=== PATIENT | male | born 1990 | race Hispanic/Latino ===

== ENCOUNTER 2020-04-20 05:26 | Inpatient (IN) | payer SELFPAY ==
[2020-04-20] VITALS (15 sets, daily range): BP systolic 120–149; BP diastolic 70–102; PULSE 102–154; RESP 14–30; TEMP 36.6–37.9; O2SAT 95–100; BMI 29.0
--- NOTE | 2020-04-20 05:59 | ED.ABDPAIN ---
HPI - Abdominal Pain <Jarred Wilson MD - Last Filed: 04/20/20 18:06> General Chief Complaint: Abdominal Pain Stated Complaint: abd/back pain, nausea Time Seen by Provider: 04/20/20 05:44 Source: patient Mode of arrival: Ambulatory Limitations: no limitations History of Present Illness HPI narrative: Patient brought here by friend. Complaints of upper mid back pain radiating to abdomen. Worsening this morning with pain. Has had nonbloody vomiting. Fevers as well. No cough cold congestion. No urinary complaints. No previous abdominal surgeries. Hurts with movement. Denies any medical problems. MD complaint: abdominal pain Related Data Home Medications Medication Instructions Recorded Confirmed No Known Home Medications 04/20/20 04/20/20 Allergies Allergy/AdvReac Type Severity Reaction Status Date / Time No Known Drug Allergies Allergy Verified 04/20/20 06:00 Review of Systems <Jarred Wilson MD - Last Filed: 04/20/20 18:06> Review of Systems Narrative: GENERAL: Complains of chills, denies fatigue, malaise, fever, sweats. HEENT: Denies sinus pain, ear pain, sore throat, difficulty swallowing RESPIRATORY: Denies dyspnea, cough CARDIOVASCULAR: Denies chest pain, palpitations, edema, GASTROINTESTINAL: Complains nausea, vomiting, abdominal pain, denies diarrhea, constipation, melena. : Denies dysuria, frequency, hematuria MUSCULOSKELETAL: denies muscle or bony pain SKIN: Denies rash, skin lesions NEUROLOGIC: Denies weakness, headache, numbness, change in speech, confusion PSYCHIATRIC: No SI or HI or hallucinations ROS Unobtainable: All systems reviewed & are unremarkable except as noted in HPI and below Patient History <Jarred Wilson MD - Last Filed: 04/20/20 18:06> Medical History Brain tumor, glioma (Acute) Social History household members: significant other Smoking Status: Never smoker Exam <Jarred Wilson MD - Last Filed: 04/20/20 18:06> Narrative Exam Narrative: GENERAL: patient appears stated age. Well-nourished, well-developed patient, in no distress, not toxic not dyspneic HEAD: Normocephalic. EYES: Pupils equal round and reactive. No scleral icterus. No injection no discharge ENT: Mucous membranes moist. No drooling no tongue elevation no trismus no malocclusion NECK: Trachea midline. Non tender CARDIOVASCULAR: Regular rate and rhythm without murmurs, gallops, or rubs. RESPIRATORY: Clear to auscultation. Breath sounds equal bilaterally. No wheezes, rales, or rhonchi. GASTROINTESTINAL: Abdomen soft, diffuse tenderness, no rebound tenderness. Bowel sounds present, no peritoneal signs. EXTREMITIES: No gross deformities. BACK: Mild diffuse mid upper back tenderness. NEURO: AOx4. SKIN: Warm and dry PSYCH: Not anxious, is cooperative Initial Vital Signs Initial Vital Signs: Vital Signs Pulse Rate 131 H 04/20/20 05:48 Respiratory Rate 30 H 04/20/20 05:48 Pulse Oximetry 100 04/20/20 05:48 <Alessandro No DO - Last Filed: 04/20/20 08:53> Initial Vital Signs Initial Vital Signs: Vital Signs Pulse Rate 131 H 04/20/20 05:48 Respiratory Rate 30 H 04/20/20 05:48 Pulse Oximetry 100 04/20/20 05:48 Course <Jarred Wilson MD - Last Filed: 04/20/20 18:06> Orders Ordered: Enoxaparin Sodium (Lovenox) 40 mg SUBCUT DAILY GERMAN Dextrose/Sodium Chloride (Dextrose 5%-0.45% Ns) 1,000 mls @ 200 mls/hr IV CONT GERMAN Last Infusion: 04/20/20 17:24 Dose: 200 mls/hr Documented by: Admin: 04/20/20 14:57 Dose: 100 mls/hr Documented by: MOE INSULIN DRIP PREMIX (Myxredlin Drip Premix) 100 unit in 100 mls @ 8.5 mls/hr IV CONT GERMAN; Protocol Last Admin: 04/20/20 14:54 Dose: 8.5 unit/hr, 8.5 mls/hr Documented by: MOE Cosigned by: GRACIE Morphine Sulfate (Morphine) 4 mg IV Q6HR PRN PRN Reason: Pain, Severe (7-10) Last Admin: 04/20/20 17:22 Dose: 4 mg Documented by: Admin: 04/20/20 11:10 Dose: 4 mg Documented by: GRACIE Naloxone HCl (Narcan) 0.2 mg IV Q2MIN PRN PRN Reason: Opiate Reversal Ondansetron HCl (Zofran) 4 mg IV Q8HR PRN PRN Reason: Nausea And Vomiting Discontinued Medications Dextrose (D50w) 25 gm IV NOW ONE Stop: 04/20/20 17:41 Last Admin: 04/20/20 17:47 Dose: Not Given Documented by: TAMERA Sodium Chloride (Normal Saline 0.9%) 1,000 mls @ 1,000 mls/hr IV BOLUS ONE Stop: 04/20/20 06:55 Last Infusion: 04/20/20 07:00 Dose: 0 mls/hr Documented by: Admin: 04/20/20 06:00 Dose: 1,000 mls/hr Documented by: BARBY Sodium Chloride (Normal Saline 0.9%) 1,000 mls @ 150 mls/hr IV CONT GERMAN Last Admin: 04/20/20 07:30 Dose: 150 mls/hr Documented by: JEREMIAH Piperacillin/Tazobactam/Dextrose (Zosyn) 3.375 gm in 50 mls @ 100 mls/hr IV NOW ONE Stop: 04/20/20 07:42 Last Infusion: 04/20/20 08:15 Dose: 0 mls/hr Documented by: Admin: 04/20/20 07:29 Dose: 100 mls/hr Documented by: JEREMIAH Sodium Chloride (Normal Saline 0.9%) 1,000 mls @ 1,000 mls/hr IV BOLUS ONE Stop: 04/20/20 13:26 Last Admin: 04/20/20 12:37 Dose: 1,000 mls/hr Documented by: GRACIE INSULIN DRIP PREMIX (Myxredlin Drip Premix) 100 unit in 100 mls @ 6 mls/hr IV TITRATE GERMAN; Protocol Last Admin: 04/20/20 14:58 Dose: Not Given Documented by: MOE Morphine Sulfate (Morphine) 4 mg IV NOW ONE Stop: 04/20/20 05:47 Last Admin: 04/20/20 06:01 Dose: 4 mg Documented by: BARBY Ondansetron HCl (Zofran) 4 mg IV NOW ONE Stop: 04/20/20 05:47 Last Admin: 04/20/20 06:00 Dose: 4 mg Documented by: BARBY Vital Signs Vital signs: Vital Signs - 8 hr 04/20/20 05:48 04/20/20 05:50 04/20/20 05:53 Temperature 99.9 F H Pulse Rate 131 H 132 H 154 H Respiratory Rate 30 H 28 H 23 Blood Pressure 136/92 H 136/99 H Pulse Oximetry 100 99 99 04/20/20 06:00 04/20/20 06:31 04/20/20 07:00 Temperature Pulse Rate 132 H 119 H 107 H Respiratory Rate 30 H 25 H Blood Pressure 135/91 H Pulse Oximetry 99 99 99 04/20/20 07:30 04/20/20 07:55 04/20/20 08:00 Temperature Pulse Rate 109 H 114 H 110 H Respiratory Rate 25 H 20 24 Blood Pressure 127/90 131/92 H Pulse Oximetry 100 98 98 <Alessandro No DO - Last Filed: 04/20/20 08:53> Orders Ordered: Enoxaparin Sodium (Lovenox) 40 mg SUBCUT DAILY GERMAN Dextrose/Sodium Chloride (Dextrose 5%-0.45% Ns) 1,000 mls @ 200 mls/hr IV CONT GERMAN Last Infusion: 04/20/20 17:24 Dose: 200 mls/hr Documented by: Admin: 04/20/20 14:57 Dose: 100 mls/hr Documented by: MOE INSULIN DRIP PREMIX (Myxredlin Drip Premix) 100 unit in 100 mls @ 8.5 mls/hr IV CONT GERMAN; Protocol Last Admin: 04/20/20 14:54 Dose: 8.5 unit/hr, 8.5 mls/hr Documented by: MOE Cosigned by: GRACIE Morphine Sulfate (Morphine) 4 mg IV Q6HR PRN PRN Reason: Pain, Severe (7-10) Last Admin: 04/20/20 17:22 Dose: 4 mg Documented by: Admin: 04/20/20 11:10 Dose: 4 mg Documented by: GRACIE Naloxone HCl (Narcan) 0.2 mg IV Q2MIN PRN PRN Reason: Opiate Reversal Ondansetron HCl (Zofran) 4 mg IV Q8HR PRN PRN Reason: Nausea And Vomiting Discontinued Medications Dextrose (D50w) 25 gm IV NOW ONE Stop: 04/20/20 17:41 Last Admin: 04/20/20 17:47 Dose: Not Given Documented by: TAMERA Sodium Chloride (Normal Saline 0.9%) 1,000 mls @ 1,000 mls/hr IV BOLUS ONE Stop: 04/20/20 06:55 Last Infusion: 04/20/20 07:00 Dose: 0 mls/hr Documented by: Admin: 04/20/20 06:00 Dose: 1,000 mls/hr Documented by: BARBY Sodium Chloride (Normal Saline 0.9%) 1,000 mls @ 150 mls/hr IV CONT GERMAN Last Admin: 04/20/20 07:30 Dose: 150 mls/hr Documented by: JEREMIAH Piperacillin/Tazobactam/Dextrose (Zosyn) 3.375 gm in 50 mls @ 100 mls/hr IV NOW ONE Stop: 04/20/20 07:42 Last Infusion: 04/20/20 08:15 Dose: 0 mls/hr Documented by: Admin: 04/20/20 07:29 Dose: 100 mls/hr Documented by: JEREMIAH Sodium Chloride (Normal Saline 0.9%) 1,000 mls @ 1,000 mls/hr IV BOLUS ONE Stop: 04/20/20 13:26 Last Admin: 04/20/20 12:37 Dose: 1,000 mls/hr Documented by: GRACIE INSULIN DRIP PREMIX (Myxredlin Drip Premix) 100 unit in 100 mls @ 6 mls/hr IV TITRATE GERMAN; Protocol Last Admin: 04/20/20 14:58 Dose: Not Given Documented by: MOE Morphine Sulfate (Morphine) 4 mg IV NOW ONE Stop: 04/20/20 05:47 Last Admin: 04/20/20 06:01 Dose: 4 mg Documented by: BARBY Ondansetron HCl (Zofran) 4 mg IV NOW ONE Stop: 04/20/20 05:47 Last Admin: 04/20/20 06:00 Dose: 4 mg Documented by: BARBY Vital Signs Vital signs: Vital Signs - 8 hr 04/20/20 05:48 04/20/20 05:50 04/20/20 05:53 Temperature 99.9 F H Pulse Rate 131 H 132 H 154 H Respiratory Rate 30 H 28 H 23 Blood Pressure 136/92 H 136/99 H Pulse Oximetry 100 99 99 04/20/20 06:00 04/20/20 06:31 04/20/20 07:00 Temperature Pulse Rate 132 H 119 H 107 H Respiratory Rate 30 H 25 H Blood Pressure 135/91 H Pulse Oximetry 99 99 99 04/20/20 07:30 04/20/20 07:55 04/20/20 08:00 Temperature Pulse Rate 109 H 114 H 110 H Respiratory Rate 25 H 20 24 Blood Pressure 127/90 131/92 H Pulse Oximetry 100 98 98 MDM - Abdominal Pain <Jarred Wilson MD - Last Filed: 04/20/20 18:06> Differential Diagnosis Differential diagnosis: Likely abdominal pain, acute appendicitis, calculus of kidney and pancreatitis Lab Data Result diagrams: 04/20/20 05:45 04/20/20 05:45 Labs: Lab Results 04/20/20 04/20/20 04/20/20 Range/Units 05:33 05:45 05:45 WBC 10.6 (4.5-11.0) X10^3/uL RBC 4.80 (4.5-5.9) X10^6/uL Hgb 14.5 (13.5-17.5) g/dL Hct 43.6 (41-53) % MCV 90.8 (80-100) fL MCH 30.2 (26-34) PG MCHC 33.3 (30-36) % RDW 14.4 (11.6-14.8) % Plt Count 197 (150-400) X10^3/uL Neut % (Auto) Not Reportable Lymph % (Auto) Not Reportable [place] % (Auto) Not Reportable Eos % (Auto) Not Reportable Baso % (Auto) Not Reportable Lymph # (Auto) Not Reportable [place] # (Auto) Not Reportable Baso # (Auto) Not Reportable Total Counted 100 Seg Neutrophils % 73.0 H (38-70) % Band Neutrophils % 5.0 (3-7) % Lymphocytes % (Manual) 15.0 L (25-45) % Atypical Lymphs % 3.0 H ( - 0) % Monocytes % (Manual) 4.0 (2-11) % Neutrophils # (Manual) 8268 H (3781-5957) /uL RBC Morphology Normal morphology Sodium 129 L (137-145) mmol/L Potassium 3.9 (3.4-5.1) mmol/L Chloride 92 L (98-107) mmol/L Carbon Dioxide 22 (22-32) mmol/L BUN 9 (9-20) mg/dL Creatinine 0.98 (0.66-1.25) mg/dL Estimated GFR > 60.0 (>60) mL/min BUN/Creatinine Ratio 9.2 (6-22) Glucose 180 H (70-100) mg/dL Calcium 7.6 L (8.4-10.2) mg/dL Total Bilirubin 3.5 H (0.2-1.3) mg/dL AST 224 H (17-59) IU/L ALT 135 H (<50) IU/L Alkaline Phosphatase 254 H (38-126) U/L Total Protein 8.9 H (6.3-8.2) g/dL Albumin 4.0 (3.5-5.0) g/dL Globulin 4.9 H (1.7-4.1) g/dL Albumin/Globulin Ratio 0.8 L (1.0-2.8) Triglycerides (35-150) mg/dL Cholesterol (140-199) mg/dL LDL Cholesterol, Calc HDL Cholesterol (40-60) mg/dL Lipase 3503 H (23-300) U/L Urine Color Dark yellow Urine Appearance Clear Urine pH 5.5 (4.5-8.0) Ur Specific [place] >=1.030 H (1.000-1.035) Urine Protein 2+ H (Negative) Urine Glucose (UA) Trace H (Negative) g/dL Urine Ketones Trace H (NEGATIVE) Urine Occult Blood Trace-lysed (Negative) Urine Nitrate Negative (Negative) Urine Bilirubin 2+ H (NEGATIVE) Ur Bilirubin Confirm Negative (Negative) Urine Urobilinogen 1.0 (0.2) E.U./dL Ur Leukocyte Esterase Negative (NEGATIVE) Urine RBC 0-1/hpf (0-5/HPF) Urine WBC 0-1/hpf (0-5/HPF) Urine Bacteria Few (2-10) H (None) Hyaline Casts 10-30/lpf (None) Granular Casts 1-5/lpf (None) Urine Mucus 2+ H (Negative) Ur Culture Indicated? Cult not indicated Ethyl Alcohol ( - 10) mg/dL COVID-19 PCR (Negative) 04/20/20 04/20/20 04/20/20 Range/Units 05:45 05:45 07:49 WBC (4.5-11.0) X10^3/uL RBC (4.5-5.9) X10^6/uL Hgb (13.5-17.5) g/dL Hct (41-53) % MCV (80-100) fL MCH (26-34) PG MCHC (30-36) % RDW (11.6-14.8) % Plt Count (150-400) X10^3/uL Neut % (Auto) Lymph % (Auto) [place] % (Auto) Eos % (Auto) Baso % (Auto) Lymph # (Auto) [place] # (Auto) Baso # (Auto) Total Counted Seg Neutrophils % (38-70) % Band Neutrophils % (3-7) % Lymphocytes % (Manual) (25-45) % Atypical Lymphs % ( - 0) % Monocytes % (Manual) (2-11) % Neutrophils # (Manual) (7227-1089) /uL RBC Morphology Sodium (137-145) mmol/L Potassium (3.4-5.1) mmol/L Chloride (98-107) mmol/L Carbon Dioxide (22-32) mmol/L BUN (9-20) mg/dL Creatinine (0.66-1.25) mg/dL Estimated GFR (>60) mL/min BUN/Creatinine Ratio (6-22) Glucose (70-100) mg/dL Calcium (8.4-10.2) mg/dL Total Bilirubin (0.2-1.3) mg/dL AST (17-59) IU/L ALT (<50) IU/L Alkaline Phosphatase (38-126) U/L Total Protein (6.3-8.2) g/dL Albumin (3.5-5.0) g/dL Globulin (1.7-4.1) g/dL Albumin/Globulin Ratio (1.0-2.8) Triglycerides 4598 H (35-150) mg/dL Cholesterol 599 H (140-199) mg/dL LDL Cholesterol, Calc TNP HDL Cholesterol 63 H (40-60) mg/dL Lipase (23-300) U/L Urine Color Urine Appearance Urine pH (4.5-8.0) Ur Specific [place] (1.000-1.035) Urine Protein (Negative) Urine Glucose (UA) (Negative) g/dL Urine Ketones (NEGATIVE) Urine Occult Blood (Negative) Urine Nitrate (Negative) Urine Bilirubin (NEGATIVE) Ur Bilirubin Confirm (Negative) Urine Urobilinogen (0.2) E.U./dL Ur Leukocyte Esterase (NEGATIVE) Urine RBC (0-5/HPF) Urine WBC (0-5/HPF) Urine Bacteria (None) Hyaline Casts (None) Granular Casts (None) Urine Mucus (Negative) Ur Culture Indicated? Ethyl Alcohol < 10 ( - 10) mg/dL COVID-19 PCR Negative (Negative) ECG Data Attestation: I personally reviewed and interpreted this ECG as follows: Interpretation: sinus tachycardia, no st elevation MDM Narrative Medical decision making narrative: appropriate for admit/pain control/abx/ivf <Alessandro No DO - Last Filed: 04/20/20 08:53> Lab Data Attestation: I reviewed the patient's lab results. Labs: Lab Results 04/20/20 04/20/20 04/20/20 Range/Units 05:33 05:45 05:45 WBC 10.6 (4.5-11.0) X10^3/uL RBC 4.80 (4.5-5.9) X10^6/uL Hgb 14.5 (13.5-17.5) g/dL Hct 43.6 (41-53) % MCV 90.8 (80-100) fL MCH 30.2 (26-34) PG MCHC 33.3 (30-36) % RDW 14.4 (11.6-14.8) % Plt Count 197 (150-400) X10^3/uL Neut % (Auto) Not Reportable Lymph % (Auto) Not Reportable [place] % (Auto) Not Reportable Eos % (Auto) Not Reportable Baso % (Auto) Not Reportable Lymph # (Auto) Not Reportable [place] # (Auto) Not Reportable Baso # (Auto) Not Reportable Total Counted 100 Seg Neutrophils % 73.0 H (38-70) % Band Neutrophils % 5.0 (3-7) % Lymphocytes % (Manual) 15.0 L (25-45) % Atypical Lymphs % 3.0 H ( - 0) % Monocytes % (Manual) 4.0 (2-11) % Neutrophils # (Manual) 8268 H (3745-8420) /uL RBC Morphology Normal morphology Sodium 129 L (137-145) mmol/L Potassium 3.9 (3.4-5.1) mmol/L Chloride 92 L (98-107) mmol/L Carbon Dioxide 22 (22-32) mmol/L BUN 9 (9-20) mg/dL Creatinine 0.98 (0.66-1.25) mg/dL Estimated GFR > 60.0 (>60) mL/min BUN/Creatinine Ratio 9.2 (6-22) Glucose 180 H (70-100) mg/dL Calcium 7.6 L (8.4-10.2) mg/dL Total Bilirubin 3.5 H (0.2-1.3) mg/dL AST 224 H (17-59) IU/L ALT 135 H (<50) IU/L Alkaline Phosphatase 254 H (38-126) U/L Total Protein 8.9 H (6.3-8.2) g/dL Albumin 4.0 (3.5-5.0) g/dL Globulin 4.9 H (1.7-4.1) g/dL Albumin/Globulin Ratio 0.8 L (1.0-2.8) Triglycerides (35-150) mg/dL Cholesterol (140-199) mg/dL LDL Cholesterol, Calc HDL Cholesterol (40-60) mg/dL Lipase 3503 H (23-300) U/L Urine Color Dark yellow Urine Appearance Clear Urine pH 5.5 (4.5-8.0) Ur Specific [place] >=1.030 H (1.000-1.035) Urine Protein 2+ H (Negative) Urine Glucose (UA) Trace H (Negative) g/dL Urine Ketones Trace H (NEGATIVE) Urine Occult Blood Trace-lysed (Negative) Urine Nitrate Negative (Negative) Urine Bilirubin 2+ H (NEGATIVE) Ur Bilirubin Confirm Negative (Negative) Urine Urobilinogen 1.0 (0.2) E.U./dL Ur Leukocyte Esterase Negative (NEGATIVE) Urine RBC 0-1/hpf (0-5/HPF) Urine WBC 0-1/hpf (0-5/HPF) Urine Bacteria Few (2-10) H (None) Hyaline Casts 10-30/lpf (None) Granular Casts 1-5/lpf (None) Urine Mucus 2+ H (Negative) Ur Culture Indicated? Cult not indicated Ethyl Alcohol ( - 10) mg/dL COVID-19 PCR (Negative) 04/20/20 04/20/20 04/20/20 Range/Units 05:45 05:45 07:49 WBC (4.5-11.0) X10^3/uL RBC (4.5-5.9) X10^6/uL Hgb (13.5-17.5) g/dL Hct (41-53) % MCV (80-100) fL MCH (26-34) PG MCHC (30-36) % RDW (11.6-14.8) % Plt Count (150-400) X10^3/uL Neut % (Auto) Lymph % (Auto) [place] % (Auto) Eos % (Auto) Baso % (Auto) Lymph # (Auto) [place] # (Auto) Baso # (Auto) Total Counted Seg Neutrophils % (38-70) % Band Neutrophils % (3-7) % Lymphocytes % (Manual) (25-45) % Atypical Lymphs % ( - 0) % Monocytes % (Manual) (2-11) % Neutrophils # (Manual) (2356-2268) /uL RBC Morphology Sodium (137-145) mmol/L Potassium (3.4-5.1) mmol/L Chloride (98-107) mmol/L Carbon Dioxide (22-32) mmol/L BUN (9-20) mg/dL Creatinine (0.66-1.25) mg/dL Estimated GFR (>60) mL/min BUN/Creatinine Ratio (6-22) Glucose (70-100) mg/dL Calcium (8.4-10.2) mg/dL Total Bilirubin (0.2-1.3) mg/dL AST (17-59) IU/L ALT (<50) IU/L Alkaline Phosphatase (38-126) U/L Total Protein (6.3-8.2) g/dL Albumin (3.5-5.0) g/dL Globulin (1.7-4.1) g/dL Albumin/Globulin Ratio (1.0-2.8) Triglycerides 4598 H (35-150) mg/dL Cholesterol 599 H (140-199) mg/dL LDL Cholesterol, Calc TNP HDL Cholesterol 63 H (40-60) mg/dL Lipase (23-300) U/L Urine Color Urine Appearance Urine pH (4.5-8.0) Ur Specific [place] (1.000-1.035) Urine Protein (Negative) Urine Glucose (UA) (Negative) g/dL Urine Ketones (NEGATIVE) Urine Occult Blood (Negative) Urine Nitrate (Negative) Urine Bilirubin (NEGATIVE) Ur Bilirubin Confirm (Negative) Urine Urobilinogen (0.2) E.U./dL Ur Leukocyte Esterase (NEGATIVE) Urine RBC (0-5/HPF) Urine WBC (0-5/HPF) Urine Bacteria (None) Hyaline Casts (None) Granular Casts (None) Urine Mucus (Negative) Ur Culture Indicated? Ethyl Alcohol < 10 ( - 10) mg/dL COVID-19 PCR Negative (Negative) Imaging Data US - abdomen: Radiologist's Impression: [address] [address] Ultrasound Report Signed Patient: Lennox Recinos FMR#: [id number] : 1990Acct:[id number] Age/Sex: te of Service: 04/20/20 Loc: ED Accession Number: [id number] Procedure: US abdomen limited Ordering Provider: Alessandro No D.O. PROCEDURE: US ABDOMEN LIMITED INDICATIONS: RUQ US eval for GB pathology TECHNIQUE: Real-time scanning was performed of the abdominal, with image documentation. COMPARISON: [facility], CT, CT ABDOMEN PELVIS W CON, 04/20/2020, 6:14. FINDINGS: Liver: Increased in size measuring 20.2 cm. Increased echogenicity. Gallbladder: Nondilated. No stones or sludge. Normal gallbladder wall thickness. No pericholecystic fluid. Negative sonographic Beltran's sign. Biliary ducts: Intrahepatic bile ducts are non-dilated. Extrahepatic bile duct caliber measures 6 mm. Normal is 6-7 mm or less in diameter, or 10 mm or less post-cholecystectomy. Pancreas: Not well seen. Please see same day CT abdomen and pelvis. Right kidney: No hydronephrosis. IMPRESSION: 1. No acute cholecystitis. No gallstones. 2. Increased hepatic echogenicity most consistent with hepatic steatosis. Other forms of hepatocellular disease could have similar appearance. 3. No biliary ductal dilatation seen. 4. Pancreas not well seen. Please see same day CT abdomen and pelvis. Dictated by: Dean Quinonez M.D. on 04/20/2020 at 7:59 Approved by: Dean Quinonez M.D. on 04/20/2020 at 8:02 CT scan - abdomen/pelvis: Radiologist's Impression: Extensive peripancreatic stranding and fluid in the right pericolic gutter consistent with acute pancreatitis. Hepatomegaly and hepatic steatosis. MDM Narrative Medical decision making narrative: Dr no: Received turned over from Dr. Wilson. Reviewed patient's history and physical. Performed my own independent examination. CT scan consistent with pancreatitis. Does have an elevated lipase. Was given antibiotics here in the ER. Secondary to his elevation in LFTs and bilirubin right upper quadrant ultrasound was ordered which was unremarkable. Patient is states that he does drink wine 3 to 4 times a week. I suspect given his presentation that his pancreatitis is most likely related to alcohol. The social work consult was placed secondary to his lack of a primary care provider and insurance. Discussed the case with Dr. Sierra with Internal Medicine who will admit for further evaluation treatment. Discussed admission with the patient. He expressed understanding and agreement. Discharge Plan Departure Patient Disposition: Admitted as Observation Clinical Impression: Pancreatitis Qualifiers: Chronicity: acute Pancreatitis type: alcohol induced Acute pancreatitis complication: unspecified Qualified Code(s): K85.20 - Alcohol induced acute pancreatitis without necrosis or infection Discharge Date/Time: 04/20/20 09:54 Admit Date/Time: 04/20/20 08:54 Admit Provider: Laci Sierra
[2020-04-20] MEDS: ONDANSETRON 4 MG/2 ML INJ IV (06:00)
[2020-04-20] MEDS: SODIUM CHLORIDE 0.9% 1,000 ML 1000 ML IV ×2 (06:00→12:37)
[2020-04-20] MEDS: MORPHINE 4 MG/ML INJ IV ×4 (06:01→23:39)
[2020-04-20 06:09] LABS: Albumin Globulin Ratio 0.8 (1.0-2.8); BUN Creatinine Ratio 9.2 (6-22); Bilirubin Total 3.5 mg/dL (0.2-1.3); Blood Urea Nitrogen 9 mg/dL (9-20); Calcium 7.6 mg/dL (8.4-10.2); Carbon Dioxide 22 mmol/L (22-32); Chloride 92 mmol/L (98-107); Estimated Glomerular Filt Rate > 60.0 mL/min (>60); Globulin 4.9 g/dL (1.7-4.1); Glucose 180 mg/dL (70-100); Sodium 129 mmol/L (137-145)
[2020-04-20 06:16] LABS: Alanine Aminotransferase 135 IU/L (<50)
[2020-04-20 06:37] LABS: Platelet Count 197 X10^3/uL (150-400); White Blood Cell Count 10.6 X10^3/uL (4.5-11.0)
[2020-04-20 06:50] LABS: Lipase 3503 U/L (23-300)
[2020-04-20 06:52] LABS: Potassium 3.9 mmol/L (3.4-5.1)
[2020-04-20 06:53] LABS: Aspartate Aminotransferase 224 IU/L (17-59)
[2020-04-20 06:54] LABS: Alkaline Phosphatase 254 U/L (38-126)
[2020-04-20 06:55] LABS: Total Protein 8.9 g/dL (6.3-8.2)
--- NOTE | 2020-04-20 07:12 | DI.US.S_ITS ---
PROCEDURE: US ABDOMEN LIMITED INDICATIONS: RUQ US eval for GB pathology TECHNIQUE: Real-time scanning was performed of the abdominal, with image documentation. COMPARISON: [facility], CT, CT ABDOMEN PELVIS W LETICIA, 04/20/2020, 6:14. FINDINGS: Liver: Increased in size measuring 20.2 cm. Increased echogenicity. Gallbladder: Nondilated. No stones or sludge. Normal gallbladder wall thickness. No pericholecystic fluid. Negative sonographic Beltran's sign. Biliary ducts: Intrahepatic bile ducts are non-dilated. Extrahepatic bile duct caliber measures 6 mm. Normal is 6-7 mm or less in diameter, or 10 mm or less post-cholecystectomy. Pancreas: Not well seen. Please see same day CT abdomen and pelvis. Right kidney: No hydronephrosis. IMPRESSION: 1. No acute cholecystitis. No gallstones. 2. Increased hepatic echogenicity most consistent with hepatic steatosis. Other forms of hepatocellular disease could have similar appearance. 3. No biliary ductal dilatation seen. 4. Pancreas not well seen. Please see same day CT abdomen and pelvis. Dictated by: Dean Quinonez M.D. on 04/20/2020 at 7:59 Approved by: Dean Quinonez M.D. on 04/20/2020 at 8:02
[2020-04-20 07:23] LABS: Hemoglobin 14.5 g/dL (13.5-17.5)
[2020-04-20 07:24] LABS: Add Manual Diff / Slide Review YES; Hematocrit 43.6 % (41-53); Mean Corpuscular HGB Conc 33.3 % (30-36); Mean Corpuscular Hemoglobin 30.2 PG (26-34); Mean Corpuscular Volume 90.8 fL (80-100); Red Cell Distribution Width 14.4 % (11.6-14.8)
[2020-04-20] MEDS: PIPERACILLIN-TAZO 3.375 GM/50 ML FROZ.PIGGY IV (07:29)
[2020-04-20] MEDS: SODIUM CHLORIDE 0.9% 1,000 ML 150 ML IV (07:30)
[2020-04-20 07:31] LABS: Ethanol (ETOH) < 10 mg/dL
[2020-04-20 07:33] LABS: Neutrophils Absolute Manual 8268 /uL (3000-5900); RBC Morphology Normal Morphology; Total Cells Counted 100
[2020-04-20 07:34] LABS: Appearance Urine UA CLEAR; Bilirubin Urine UA 2+ (NEGATIVE); Glucose Urine UA TRACE g/dL (Negative); Ketones Urine UA TRACE (NEGATIVE); Leukocyte Esterase Urine UA NEGATIVE (NEGATIVE); Nitrite Urine UA NEGATIVE (Negative); Occult Blood Urine UA TRACE-LYSED (Negative); Protein Urine UA 2+ (Negative); Specific Gravity Urine UA >=1.030 (1.000-1.035); pH Urine UA 5.5 (4.5-8.0)
[2020-04-20 07:35] LABS: Color Urine UA Dark Yellow
[2020-04-20 07:41] LABS: Ictotest Urine Negative (Negative); RBC Urine 0-1/HPF (0-5/HPF); WBC Urine 0-1/HPF (0-5/HPF)
[2020-04-20 07:42] LABS: Bacteria Urine Few (2-10); Culture Indicated Urine Cult Not Indicated; Granular Casts Urine 1-5/LPF; Hyaline Casts Urine 10-30/LPF; Mucus Urine 2+ (Negative)
[2020-04-20 08:07] LABS: COVID19 -Nasal RAPID Negative (Negative)
--- NOTE | 2020-04-20 08:23 | DI.CT.S_ITS ---
PROCEDURE: CT ABDOMEN PELVIS W CON INDICATIONS: iv contrast only/abd pain TECHNIQUE: After the administration of intravenous contrast, 5 mm thick sections acquired from the diaphragm to the symphysis. 5 mm coronal and sagittal reformats were acquired. For radiation dose reduction, the following was used: automated exposure control, adjustment of mA and/or kV according to patient size. COMPARISON: None. FINDINGS: Image quality: Excellent. ABDOMEN: Lung bases: Lung bases are clear. Heart size is normal. Solid organs: Severe hepatic steatosis. Liver is mildly enlarged. Gallbladder is unremarkable . Biliary system is non dilated. Pancreas edema ptosis with peripancreatic fluid and marked stranding consistent with acute pancreatitis. There is no CT findings to suggest pancreatic necrosis. No pancreatic calcifications or pseudocyst. Spleen is normal in size and enhancement. No adrenal nodules. Kidneys demonstrate normal size and enhancement, without hydronephrosis. Peritoneum and bowel: There is thickening of duodenum adjacent to the pancreatic head and uncinate process, which is likely related to direct spread of inflammation from acute pancreatitis. A small amount of free fluid is present Bowel loops demonstrate normal caliber. No free air. Nodes and vessels: No retroperitoneal or mesenteric adenopathy by size criteria. Aorta and inferior vena cava are normal in size. Miscellaneous: No ventral hernias. PELVIS: Genitourinary: Mild concentric thickening of bladder is likely secondary to nondistention. Miscellaneous: No inguinal hernias or adenopathy. Bones: No suspicious bony lesions. No vertebral body compression fractures. IMPRESSION: 1. Acute pancreatitis. No CT findings to suggest pancreatic necrosis at this time. 2. Thickening of duodenum adjacent to the pancreatic head/uncinate process is likely secondary to direct spread of inflammation from acute pancreatitis. 3. Mild hepatomegaly and severe hepatic steatosis. No significant discrepancy with the blade changer radiology preliminary report. Dictated by: Ambrose Wheeler M.D. on 04/20/2020 at 8:29 Approved by: Ambrose Wheeler M.D. on 04/20/2020 at 8:36
--- NOTE | 2020-04-20 10:10 | PC.NURSE ---
Day shift note: Received patient from ED to AC room 225. Awake, alert, and cooperative, ambulated from gurney to bed. C/O pain to mid lower back and generalized abdominal region. Abdomen distended, round, active BS, tender to light palpation, specifically epigastric area, very guarded. HR 110-112 and afebrile. 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 Has been on both PO cancer medication and radiation until two weeks ago. No weakness or numbness noted to BUE or BLE. He is currently on the road for work, lives in [place]. Does not have a PMD, Oncologist information is email [email or web address]. Discussed importance of NPO status. IVF infusing. Oriented to room, environment, and plan of care. Call light within reach. Significant other Lizet, at bedside, providing supportive care.
--- NOTE | 2020-04-20 11:47 | PM.HP.1 ---
History of Present Illness History of Present Illness Date Patient Seen: 04/20/20 Time Patient Seen: 11:48 Chief complaint: abd/back pain, nausea Narrative: This is a 29-year-old male with a past medical history of a brain glioma, but no active medical conditions and on no current medications who presented with mid back and abdominal pain for the past 3 days. Patient reports that 3 days prior to admission he had a back pain that radiated into his belly described as more of a fullness than an overt pain. This sensation actually starts in his back and radiates into his belly. This increased in severity from mild to fairly severe today which is what prompted the patient to seek emergency care. He had nausea and vomiting and was not able to take in much food, but does not think that food makes his pain worse. He has lost quite a bit of weight recently, as his appetite has been much diminished over the past 2 weeks. He has never had an episode of pain like this before. He denies any dysuria, urinary frequency. He denies any hematochezia or melena, and has not had any bloody or dark emesis. He states he has wine up to 3 times a week, confirmed by his fiancee at bedside. In the emergency room, patient was mildly hypertensive and tachycardic, somewhat improved upon arrival to the floor after morphine administration. Initial laboratory findings did not show a leukocytosis, and did show a rather unremarkable CBC. Sodium was mildly low at 129, as was his chloride at 92. Admission glucose was 180, total bilirubin 3.5, AST 224, ALT 135. Total protein was 8.9 with a normal albumin. Added on serum triglycerides after admission which showed a value of 4598, total cholesterol of 599, and an HDL of 63. Lipase on admission was 3503. UA did not show any evidence infection. Alcohol level was negative. COVID-19 testing was negative. Patient History Medical History Brain tumor, glioma (Acute) Family & Social History Family history unavailable: Yes (no relevant PFH) Social History: household members significant other Prior Living Arrangements House Safety & Behavioral: Feels Safe in Current Yes Environment Tobacco & Substance use: Smoking Status Never smoker alcohol intake frequency a few times a week Substance Use Type does not use Meds Home Medications and Allergies Home Medications Medication Instructions Recorded Confirmed Type No Known Home Medications 04/20/20 04/20/20 History Allergies Allergy/AdvReac Type Severity Reaction Status Date / Time No Known Drug Allergies Allergy Verified 04/20/20 06:00 Review of Systems Review of Systems Narrative: All other systems reviewed with the patient and are negative unless otherwise stated. Exam Vital Signs (past 8 hours): - 04/20/20 05:48 04/20/20 05:50 04/20/20 05:53 Temperature 99.9 F H Pulse Rate 131 H 132 H 154 H Respiratory Rate 30 H 28 H 23 Blood Pressure 136/92 H 136/99 H Pulse Oximetry 100 99 99 04/20/20 06:00 04/20/20 06:31 04/20/20 07:00 Temperature Pulse Rate 132 H 119 H 107 H Respiratory Rate 30 H 25 H Blood Pressure 135/91 H Pulse Oximetry 99 99 99 04/20/20 07:30 04/20/20 07:55 04/20/20 08:00 Temperature Pulse Rate 109 H 114 H 110 H Respiratory Rate 25 H 20 24 Blood Pressure 127/90 131/92 H Pulse Oximetry 100 98 98 04/20/20 10:00 Temperature 99.0 F Pulse Rate 113 H Respiratory Rate 14 Blood Pressure 149/102 H Pulse Oximetry 97 Oxygen Delivery Method Room Air Narrative Exam Narrative: GENERAL APPEARANCE: Well developed, well nourished, in no acute distress. SKIN: Inspection of the skin reveals no rashes, ulcerations or petechiae. HEENT: Normocephalic atraumatic, extraocular muscles are intact, oropharynx is clear and mucous membranes are moist, neck is supple without adenopathy NECK: Supple and symmetric. There was no thyroid enlargement, and no tenderness, or masses were felt. CHEST: Normal AP diameter and normal contour without any kyphoscoliosis. LUNGS: Auscultation of the lungs revealed no wheezes, rhonchi, or rales. CARDIOVASCULAR: There was a regular rate and rhythm without any murmurs, gallops, rubs. Peripheral pulses were 2+ and symmetric. ABDOMEN: Soft but mildly distended abdomen with epigastric tenderness, no guarding or rebound. MUSCULOSKELETAL: There was no tenderness or effusions noted. Muscle strength and tone were normal. EXTREMITIES: No cyanosis, clubbing or edema. NEUROLOGIC: Alert and oriented x 3. Normal affect. Gait was normal. Strength is +5/5 in the Upper Extremities and Lower Extremities Bilaterally. Sensation to touch was normal. Objective Labs Result Diagrams: 04/20/20 05:45 04/20/20 05:45 Labs: Laboratory Results - last 24 hr 04/20/20 04/20/20 04/20/20 05:33 05:45 05:45 WBC 10.6 RBC 4.80 Hgb 14.5 Hct 43.6 MCV 90.8 MCH 30.2 MCHC 33.3 RDW 14.4 Plt Count 197 Neut % (Auto) Not Reportable Lymph % (Auto) Not Reportable [place] % (Auto) Not Reportable Eos % (Auto) Not Reportable Baso % (Auto) Not Reportable Lymph # (Auto) Not Reportable [place] # (Auto) Not Reportable Baso # (Auto) Not Reportable Total Counted 100 Seg Neutrophils % 73.0 H Band Neutrophils % 5.0 Lymphocytes % (Manual) 15.0 L Atypical Lymphs % 3.0 H Monocytes % (Manual) 4.0 Neutrophils # (Manual) 8268 H RBC Morphology Normal morphology Sodium 129 L Potassium 3.9 Chloride 92 L Carbon Dioxide 22 BUN 9 Creatinine 0.98 Estimated GFR > 60.0 BUN/Creatinine Ratio 9.2 Glucose 180 H Calcium 7.6 L Total Bilirubin 3.5 H AST 224 H ALT 135 H Alkaline Phosphatase 254 H Total Protein 8.9 H Albumin 4.0 Globulin 4.9 H Albumin/Globulin Ratio 0.8 L Lipase 3503 H Urine Color Dark yellow Urine Appearance Clear Urine pH 5.5 Ur Specific [place] >=1.030 H Urine Protein 2+ H Urine Glucose (UA) Trace H Urine Ketones Trace H Urine Occult Blood Trace-lysed Urine Nitrate Negative Urine Bilirubin 2+ H Ur Bilirubin Confirm Negative Urine Urobilinogen 1.0 Ur Leukocyte Esterase Negative Urine RBC 0-1/hpf Urine WBC 0-1/hpf Urine Bacteria Few (2-10) H Hyaline Casts 10-30/lpf Granular Casts 1-5/lpf Urine Mucus 2+ H Ur Culture Indicated? Cult not indicated Ethyl Alcohol COVID-19 PCR 04/20/20 04/20/20 05:45 07:49 WBC RBC Hgb Hct MCV MCH MCHC RDW Plt Count Neut % (Auto) Lymph % (Auto) [place] % (Auto) Eos % (Auto) Baso % (Auto) Lymph # (Auto) [place] # (Auto) Baso # (Auto) Total Counted Seg Neutrophils % Band Neutrophils % Lymphocytes % (Manual) Atypical Lymphs % Monocytes % (Manual) Neutrophils # (Manual) RBC Morphology Sodium Potassium Chloride Carbon Dioxide BUN Creatinine Estimated GFR BUN/Creatinine Ratio Glucose Calcium Total Bilirubin AST ALT Alkaline Phosphatase Total Protein Albumin Globulin Albumin/Globulin Ratio Lipase Urine Color Urine Appearance Urine pH Ur Specific [place] Urine Protein Urine Glucose (UA) Urine Ketones Urine Occult Blood Urine Nitrate Urine Bilirubin Ur Bilirubin Confirm Urine Urobilinogen Ur Leukocyte Esterase Urine RBC Urine WBC Urine Bacteria Hyaline Casts Granular Casts Urine Mucus Ur Culture Indicated? Ethyl Alcohol < 10 COVID-19 PCR Negative Assessment & Plan Assessment & Plan narrative: This is a 29-year-old male with a past medical history of a brain glioma, but no active medical conditions and on no current medications who presented with mid back and abdominal pain for the past 3 days. He is admitted for acute pancreatitis, ultimately likely secondary to hypertriglyceridemia given a level of 4598 on admission. He will be transferred to the ICU for an insulin infusion until his triglycerides drop below 500. 1. Acute pancreatitis, present on admission, secondary to hypertriglyceridemia -patient with findings consistent with pancreatitis on imaging, elevated lipase to 3503 on admission. Admission triglyceride level is 4598. -patient was started on insulin infusion at 0.1 units/kg/hour. Will also continue on D5 half-normal saline given mild hyponatremia at this time. -continue to follow triglycerides until less than 500, at which point will start oral medications and stop his insulin infusion. Continue fingersticks q.1 hour while on insulin infusion. -patient reports drinking wine 3 times weekly, but not a severe intake. However, his labs are consistent with an alcoholic hepatitis. Biliary ultrasound did not show evidence of gallstones. Will continue to monitor his LFTs and may consider MRCP after initial therapy and response. -will remain NPO and on above IV fluids. 2. Hyponatremia, acute, present on admission -likely secondary to relative dehydration in the setting of decreased p.o. intake and pancreatitis. Will continue fluids with D5 half-normal saline while on insulin infusion. 3. Elevated blood glucose level without a diagnosis of diabetes, present on admission -glucose of 180 on admission, will send A1c to check for diabetes. 4. Acute hepatitis, present on admission -patient with an elevated bilirubin of 3.5, AST of 224, ALT of 135. He also has a mildly elevated alk-phos at 254. He does drink wine, currently endorse that 3 times a week. Unclear if there is a biliary component to his pancreatitis, or if this is reactive. -will continue to monitor. Right upper quadrant ultrasound showed hepatic steatosis. -will send off hepatitis serologies. I spent 35 minutes providing critical care management this patient. This excludes time spent in performing separately billed procedures. Code: full, surrogate decision maker he list as his fiancee. Dispo: Admit to the ICU for an insulin infusion and frequent monitoring.
[2020-04-20 13:10] LABS: HDL Cholesterol 63 mg/dL (40-60)
[2020-04-20 14:04] LABS: Cholesterol 599 mg/dL (140-199); Triglycerides 4598 mg/dL (35-150)
[2020-04-20] MEDS: INSULIN DRIP PREMIX 100 UNIT/100 ML PLAST..BAG 8.5 UNIT IV (14:54)
[2020-04-20] MEDS: DEXTROSE 5%-0.45% NS 1,000 ML 100 ML IV (14:57)
[2020-04-20] MEDS: DEXTROSE 50 % IN WATER 25 GM/50 ML SYRINGE ×2 (17:22→20:15)
[2020-04-20] MEDS: DEXTROSE 10 % IN WATER 1,000 ML 200 ML IV (19:19)
[2020-04-20 22:41] LABS: BUN Creatinine Ratio 3.4 (6-22); Blood Urea Nitrogen 3 mg/dL (9-20); Calcium 6.5 mg/dL (8.4-10.2); Carbon Dioxide 27 mmol/L (22-32); Chloride 100 mmol/L (98-107); Estimated Glomerular Filt Rate > 60.0 mL/min (>60); Glucose 66 mg/dL (70-100); HEMOLYSIS 19 (0-50); Potassium 3.1 mmol/L (3.4-5.1); Sodium 130 mmol/L (137-145)
[2020-04-20 22:54] LABS: HEMOLYSIS 188 (0-50)
[2020-04-20] MEDS: DEXTROSE 50 % IN WATER 25 GM/50 ML SYRINGE IV (23:01)
--- NOTE | 2020-04-20 23:23 | PC.NURSE ---
Patient A/Ox4. Tenderness to abdomen. Room air. NPO. Insulin drip was at 8.5ml/hr and D5 1/2NS @100. Q1H BG checks: 1600: 109 1700: 60 - Notified MD, received order to increase D5 1/2NS to 200ml/hr and give 25mg of D50. 1800: 149 1900: 75- Notified MD, received order to stop D51/2NS and start D10 @200 ml/hr and give 12.5gm D50 2000: 75- Notified FI[employer] SUPERVISOR, no new orders 2100: 97 2200: 78- Notified [employer] SUPERVISOR, received orders to increase D10 to 250 ml/hr 2300: 86- Notified FI[employer] SUPERVISOR, received orders to give 12.5gm D50 Labs done at 2230 showed K 3.1, FI[employer] SUPERVISOR notified, order for 40meq K rider received at shift change and passed on to bond manager. Patient has no complaints, says his pain is alright at the moment and is aware of available pain medications. Call light at bedside, able to make needs known appropriately.
[2020-04-20] MEDS: INSULIN DRIP PREMIX 100 UNIT/100 ML PLAST..BAG 7 UNIT IV (23:28)
[2020-04-20] MEDS: DEXTROSE 10 % IN WATER 1,000 ML 250 ML IV (23:58)
[2020-04-20] MEDS: POTASSIUM CHLORIDE 40 MEQ in SODIUM CHLORIDE 0.9% 500 ML 130 ML IV (23:59)
[2020-04-21] VITALS (10 sets, daily range): BP systolic 109–129; BP diastolic 68–83; PULSE 95–103; RESP 14–20; TEMP 36.7–37.4; O2SAT 97–98
--- NOTE | 2020-04-21 01:19 | PC.NURSE ---
Addendum entered by Lynn Mederos R.N. 04/21/20 06:12: Notified Emigdio KENNEY of 0600 blood glucose level of 130. Morning lab triglyceride and K+ lab values. VO to decrease D10 continuous infusion to 200ml/hr. WCTM Addendum entered by Lynn Mederos R.N. 04/21/20 02:09: Notified Emigdio KENNEY of blood glucose of 84. Orders received Original Note: Pt BS at 88 at 0100. Emigdio KENNEY notified. TO to decrease insulin gtt to 6mls/hr. TO from Emigdio KENNEY for blood sugar goal of >90, instructed to notify provider if drops below. Pt denies any complaints at this time
[2020-04-21] MEDS: DEXTROSE 50 % IN WATER 25 GM/50 ML SYRINGE IV (02:15)
[2020-04-21 02:36] LABS: Hepatitis B Core Antibody Negative (Negative)
[2020-04-21] MEDS: DEXTROSE 10 % IN WATER 1,000 ML 250 ML IV (03:50)
[2020-04-21] MEDS: ONDANSETRON 4 MG/2 ML INJ IV (03:53)
[2020-04-21 04:40] LABS: INR 1.2 (0.9-1.3)
[2020-04-21 04:44] LABS: Triglycerides 476 mg/dL (35-150)
[2020-04-21 04:46] LABS: Alanine Aminotransferase 80 IU/L (<50); Albumin 2.7 g/dL (3.5-5.0); Albumin Globulin Ratio 0.9 (1.0-2.8); Alkaline Phosphatase 118 U/L (38-126); Aspartate Aminotransferase 133 IU/L (17-59); Bilirubin Conjugated 0.4 md/dL (0.0-0.3); Bilirubin Total 2.7 mg/dL (0.2-1.3); Calcium 6.5 mg/dL (8.4-10.2); Carbon Dioxide 26 mmol/L (22-32); Chloride 100 mmol/L (98-107); Estimated Glomerular Filt Rate > 60.0 mL/min (>60); Globulin 3.1 g/dL (1.7-4.1); Glucose 102 mg/dL (70-100); HEMOLYSIS 18 (0-50); Magnesium 1.8 mg/dL (1.6-2.3); Potassium 3.3 mmol/L (3.4-5.1); Sodium 128 mmol/L (137-145); Total Protein 5.8 g/dL (6.3-8.2)
[2020-04-21 04:47] LABS: Add Manual Diff / Slide Review NO; Basophils Absolute Auto 0 /uL (0-100); Basophils Percent Auto 0.2 % (0-2); Eosinophils Absolute Auto 0 /uL (0-450); Eosinophils Percent Auto 0.7 % (2-4); Hematocrit 35.1 % (41-53); Lymphocytes Absolute Auto 1600 /uL (1100-4500); Mean Corpuscular HGB Conc 34.1 % (30-36); Mean Corpuscular Hemoglobin 31.4 PG (26-34); Monocytes Absolute Auto 400 /uL (0-900); Monocytes Percent Auto 5.8 % (3-14); Neutrophils Absolute Auto 4700 /uL (1500-7000); Neutrophils Percent Auto 69.3 % (50-75); Platelet Count 103 X10^3/uL (150-400); Red Blood Cell Count 3.82 X10^6/uL (4.5-5.9); Red Cell Distribution Width 13.6 % (11.6-14.8); White Blood Cell Count 6.7 X10^3/uL (4.5-11.0)
[2020-04-21 04:53] LABS: BUN Creatinine Ratio 2.6 (6-22); Blood Urea Nitrogen < 2 mg/dL (9-20)
[2020-04-21 05:59] LABS: Hepatitis B Surface Antigen NEGATIVE s/c (NEGATIVE)
[2020-04-21] MEDS: MORPHINE 4 MG/ML INJ IV ×2 (06:06→08:20)
[2020-04-21 06:13] LABS: Hep C Virus Ab w/Reflex Quant NEGATIVE s/c (NEGATIVE)
[2020-04-21] MEDS: DEXTROSE 10 % IN WATER 1,000 ML 200 ML IV (08:20)
[2020-04-21] MEDS: ENOXAPARIN 40 MG/0.4 ML SYRINGE SUBCUT (08:21)
[2020-04-21] MEDS: FENOFIBRATE 145 MG TABLET PO (10:05)
[2020-04-21] MEDS: POTASSIUM CHLORIDE 20 MEQ/15 ML UDC 40 MEQ PO (12:33)
[2020-04-21] MEDS: OXYCODONE IR 5 MG TABLET PO ×2 (13:02→18:34)
--- NOTE | 2020-04-21 14:31 | PM.PN.1 ---
Subjective Subjective Date Patient Seen: 04/21/20 Time Patient Seen: 11:15 Interval history: This is a 29-year-old male who was admitted for hypertriglyceridemia pancreatitis. Overnight there is much difficulty keeping in Mon an insulin infusion given persistent hypoglycemia, however his triglycerides were back down to 476 this morning. Insulin infusion was stopped and patient was started on a statin and fenofibrate. His bilirubin and liver enzymes have also decreased slightly today. He is feeling much better, but continues to still have abdominal pain and some nausea which are improved with pain medications. He is tolerating clears somewhat but does not feel ready to advance his diet as of the afternoon yet, Exam Vital Signs (past 8 hours): - 04/21/20 08:00 04/21/20 12:00 Temperature 98.7 F 98.1 F Pulse Rate 97 H 101 H Respiratory Rate 14 16 Blood Pressure 127/80 117/78 Pulse Oximetry 97 97 Oxygen Delivery Method Room Air Oxygen Flow Rate 0 Narrative Exam Narrative: GENERAL APPEARANCE: Well developed, well nourished, in no acute distress. SKIN: Inspection of the skin reveals no rashes, ulcerations or petechiae. HEENT: Normocephalic atraumatic, extraocular muscles are intact, oropharynx is clear and mucous membranes are moist, neck is supple without adenopathy NECK: Supple and symmetric. There was no thyroid enlargement, and no tenderness, or masses were felt. CHEST: Normal AP diameter and normal contour without any kyphoscoliosis. LUNGS: Auscultation of the lungs revealed no wheezes, rhonchi, or rales. CARDIOVASCULAR: There was a regular rate and rhythm without any murmurs, gallops, rubs. Peripheral pulses were 2+ and symmetric. ABDOMEN: Soft but mildly distended abdomen with epigastric tenderness, no guarding or rebound. MUSCULOSKELETAL: There was no tenderness or effusions noted. Muscle strength and tone were normal. EXTREMITIES: No cyanosis, clubbing or edema. NEUROLOGIC: Alert and oriented x 3. Normal affect. Gait was normal. Strength is +5/5 in the Upper Extremities and Lower Extremities Bilaterally. Sensation to touch was normal. Objective Labs Result Diagrams: 04/21/20 04:10 04/21/20 04:10 Labs: Laboratory Results - last 24 hr 04/20/20 04/20/20 04/21/20 05:45 22:25 04:10 WBC 6.7 RBC 3.82 L Hgb 12.0 L Hct 35.1 L MCV 92.0 MCH 31.4 MCHC 34.1 RDW 13.6 Plt Count 103 L Neut % (Auto) 69.3 Lymph % (Auto) 24.0 L [place] % (Auto) 5.8 Eos % (Auto) 0.7 L Baso % (Auto) 0.2 Neut # (Auto) 4700 Lymph # (Auto) 1600 [place] # (Auto) 400 Eos # (Auto) 0 Baso # (Auto) 0 PT INR Sodium 130 L Potassium 3.1 L Chloride 100 Carbon Dioxide 27 BUN 3 L Creatinine 0.88 Estimated GFR > 60.0 BUN/Creatinine Ratio 3.4 L Glucose 66 L D Hemoglobin A1c Calcium 6.5 L Magnesium Total Bilirubin Conjugated Bilirubin Unconjugated Bilirubin AST ALT Alkaline Phosphatase Total Protein Albumin Globulin Albumin/Globulin Ratio Triglycerides Hep Bs Antigen Hep B Core Total Ab Negative Hepatitis C Antibody 04/21/20 04/21/20 04/21/20 04:10 04:10 04:10 WBC RBC Hgb Hct MCV MCH MCHC RDW Plt Count Neut % (Auto) Lymph % (Auto) [place] % (Auto) Eos % (Auto) Baso % (Auto) Neut # (Auto) Lymph # (Auto) [place] # (Auto) Eos # (Auto) Baso # (Auto) PT 14.0 H INR 1.2 Sodium 128 L Potassium 3.3 L Chloride 100 Carbon Dioxide 26 BUN < 2 L Creatinine 0.78 Estimated GFR > 60.0 BUN/Creatinine Ratio 2.6 L Glucose 102 H Hemoglobin A1c 6.0 Calcium 6.5 L Magnesium 1.8 Total Bilirubin 2.7 H Conjugated Bilirubin 0.4 H Unconjugated Bilirubin 1.0 AST 133 H ALT 80 H Alkaline Phosphatase 118 D Total Protein 5.8 L Albumin 2.7 L Globulin 3.1 Albumin/Globulin Ratio 0.9 L Triglycerides Hep Bs Antigen Hep B Core Total Ab Hepatitis C Antibody 04/21/20 04/21/20 04:10 04:10 WBC RBC Hgb Hct MCV MCH MCHC RDW Plt Count Neut % (Auto) Lymph % (Auto) [place] % (Auto) Eos % (Auto) Baso % (Auto) Neut # (Auto) Lymph # (Auto) [place] # (Auto) Eos # (Auto) Baso # (Auto) PT INR Sodium Potassium Chloride Carbon Dioxide BUN Creatinine Estimated GFR BUN/Creatinine Ratio Glucose Hemoglobin A1c Calcium Magnesium Total Bilirubin Conjugated Bilirubin Unconjugated Bilirubin AST ALT Alkaline Phosphatase Total Protein Albumin Globulin Albumin/Globulin Ratio Triglycerides 476 H Hep Bs Antigen Negative Hep B Core Total Ab Hepatitis C Antibody Negative Assessment & Plan Assessment & Plan narrative: This is a 29-year-old male with a past medical history of a brain glioma, but no active medical conditions and on no current medications who presented with mid back and abdominal pain for the past 3 days. He is admitted for acute pancreatitis, ultimately likely secondary to hypertriglyceridemia given a level of 4598 on admission. He was transferred to the ICU for an insulin infusion until his triglycerides dropped below 500 this AM. Now on oral medications and tolerating some clears but still with abdominal pain and mild distension. 1. Acute pancreatitis, present on admission, secondary to hypertriglyceridemia -patient with findings consistent with pancreatitis on imaging, elevated lipase to 3503 on admission. Admission triglyceride level is 4598. -patient was started on insulin infusion at 0.1 units/kg/hour and d5 / d10 infusion. He required some boluses of d50 as well due to hypoglycemia. Repeat triglyceride level the following morning showed a triglyceride level of 476. Insulin infusion was stopped and the patient was started on a statin medication and fenofibrate. -patient reports drinking wine 3 times weekly, but not a severe intake. However, his labs are consistent with an alcoholic hepatitis. Biliary ultrasound did not show evidence of gallstones. Will continue to monitor his LFTs and may consider MRCP after initial therapy and response. -patient was started on clear liquids, which he is tolerating but continues to have abdominal pain and distension. Will continue on clears for now, and advanced when able. 2. Hyponatremia, acute, present on admission -likely secondary to relative dehydration in the setting of decreased p.o. intake and pancreatitis. Unfortunately had to continue the patient on D10 water which slightly diminished his sodium level today. He will continue on clears and we will follow-up his values in the morning. 3. Pre diabetes, present on admission -glucose of 180 on admission, A1c is 6.0 indicative of pre diabetes 4. Acute hepatitis, present on admission -patient with an elevated bilirubin of 3.5, AST of 224, ALT of 135. He also has a mildly elevated alk-phos at 254. He does drink wine, currently endorse that 3 times a week. Unclear if there is a biliary component to his pancreatitis, or if this is reactive. -will continue to monitor and his bilirubin and liver enzymes have decreased today. Right upper quadrant ultrasound showed hepatic steatosis. -pending hepatitis serologies 5. Hypokalemia, acute, not present on admission -likely secondary to insulin infusion. He was repleted this more the an insulin infusion was able to be stopped as his triglyceride level improved. Code: full, surrogate decision maker he list as his fiancee. Dispo: Stable for the regular floor, anticipate discharge home in the next 1-2 days once tolerating a diet without significant pain.
--- NOTE | 2020-04-21 15:59 | CM.DANOTE ---
DCP/Assessment: Reviewed chart. Patient is a 29yr old male admitted to [facility] with [facility]. No PCP listed. Primary payor is: 1)Self pay. Met with patient explained CM/SW role. Patient alert and oriented, sitting in recliner at time of visit. Patient reports that he resides in [place] with his significant other/Lizet. Patient denies any d/c planning needs and is completely I in all ADL's. Patient agreeable to have [facility] sales representative cash registers come see him about insurance. Admit counselors notified. P: Home when stable. MAKENZIE Odonnell Discharge Planning/Care Management CM Discharge Assessment Start: 04/21/20 15:01 Freq: Status: Active Protocol: Document 04/21/20 15:01 KJS (Rec: 04/21/20 15:59 KJS [email or web address]) Discharge Planning Assessment Assigned Human Resources Project Coordinator MAKENZIE Odonnell Contact Information Lizet Chahal (significant other) [phone] Advance Directives? No History Provided By Patient,Medical Record Prior Living Arrangements House Household Members significant other Type of transporation used prior to Drives own vehicle admit Independent with ADL's Yes Is patient alert and oriented? Yes Caregiver for Another No Barriers to Discharge No Discharge Plan Home Transportation Arrangement Patient reports that his significint other/Lizet will pick him up. Additional Comment Asked admit counselors to apply patient more Medicaid. Whiteboard Updated in Patient Room with Yes name and ext. # of Human Resources Project Coordinator Review Status In Process Next Review Type Continued Stay Review
[2020-04-21] MEDS: ATORVASTATIN 20 MG TABLET 80 MG PO (20:00)
--- NOTE | 2020-04-21 21:09 | PC.NURSE ---
Shift Note: Pt AAO x4, moving about the room ad bubba, denies nausea, took clear liq diet well without problems. IV saline locked. Medicated for 5/10 pain with oxy 5mg with good effect. VSS, cooperative with care, call light within reach.
[2020-04-22] VITALS (7 sets, daily range): BP systolic 109–126; BP diastolic 75–81; PULSE 83–110; RESP 16–18; TEMP 36.6–37.4; O2SAT 96–99
[2020-04-22] MEDS: OXYCODONE IR 5 MG TABLET PO ×3 (03:38→13:07)
[2020-04-22 05:11] LABS: Add Manual Diff / Slide Review NO; Basophils Absolute Auto 0 /uL (0-100); Basophils Percent Auto 0.1 % (0-2); Eosinophils Absolute Auto 0 /uL (0-450); Eosinophils Percent Auto 0.6 % (2-4); Hematocrit 35.1 % (41-53); Lymphocytes Absolute Auto 1200 /uL (1100-4500); Mean Corpuscular HGB Conc 34.1 % (30-36); Mean Corpuscular Hemoglobin 31.6 PG (26-34); Mean Corpuscular Volume 92.4 fL (80-100); Monocytes Absolute Auto 700 /uL (0-900); Monocytes Percent Auto 9.3 % (3-14); Neutrophils Absolute Auto 5200 /uL (1500-7000); Platelet Count 126 X10^3/uL (150-400); Red Cell Distribution Width 13.7 % (11.6-14.8); White Blood Cell Count 7.2 X10^3/uL (4.5-11.0)
[2020-04-22 05:12] LABS: Alanine Aminotransferase 118 IU/L (<50); Albumin Globulin Ratio 0.9 (1.0-2.8); Alkaline Phosphatase 138 U/L (38-126); Aspartate Aminotransferase 169 IU/L (17-59); Bilirubin Conjugated 1.4 md/dL (0.0-0.3); Bilirubin Total 4.4 mg/dL (0.2-1.3); Bilirubin Unconjugated 1.5 mg/dL (0.0-1.1); Calcium 7.8 mg/dL (8.4-10.2); Carbon Dioxide 30 mmol/L (22-32); Chloride 98 mmol/L (98-107); Estimated Glomerular Filt Rate > 60.0 mL/min (>60); Globulin 3.3 g/dL (1.7-4.1); Glucose 141 mg/dL (70-100); HEMOLYSIS < 15 (0-50); Magnesium 2.1 mg/dL (1.6-2.3); Potassium 3.6 mmol/L (3.4-5.1); Sodium 131 mmol/L (137-145); Total Protein 6.3 g/dL (6.3-8.2)
[2020-04-22 05:15] LABS: BUN Creatinine Ratio 2.4 (6-22); Blood Urea Nitrogen < 2 mg/dL (9-20)
[2020-04-22 05:50] LABS: Hepatitis B Surf Ab Qualitativ Reactive (.)
--- NOTE | 2020-04-22 07:10 | DI.MRI.S_ITS ---
PROCEDURE: MR ABDOMEN WO CON INDICATIONS: pancreatitis TECHNIQUE: Coronal HASTE through the abdomen, axial 2-D FLASH in- and [id number], and breath-hold T2 FSE with fat saturation through the biliary system and pancreas. Oblique coronal and axial thin-slice HASTE, radial thick-slab HASTE centered on the extrahepatic bile ducts. Intravenous secretin: Not requested. COMPARISON: [facility], US, US ABDOMEN LIMITED, 04/20/2020, 7:21. [facility], CT, CT ABDOMEN PELVIS W CON, 04/20/2020, 6:14. FINDINGS: Image quality: There are motion artifacts. Pancreas and biliary system: Pancreas is edematous with peripancreatic stranding and fluid collection consistent with acute pancreatitis. Pancreatic duct is normal in caliber, without developmental anomalies. Intra- and extra-hepatic biliary ducts are non dilated. Common bile duct measures up to 5 mm. Gallbladder is normal. No gallstones or biliary duct stones. Other solid organs: Liver is enlarged measuring 21.4 cm in length. Severe hepatic fatty infiltrates. Spleen is normal in size. No adrenal nodules. Both kidneys are normal in size, without hydronephrosis. Nodes and vessels: No retroperitoneal or mesenteric adenopathy by size criteria. Aorta and inferior vena cava are normal in size. Bowel and peritoneum: Mild duodenal thickening. Unenhanced bowel loops are normal in caliber. A small amount free fluid is present in the lesser sac and. Lung bases: Small pleural effusions bilaterally. Heart size is normal. Bones and soft tissues: No ventral hernias. Bone marrow is of normal overall signal. IMPRESSION: 1. Acute pancreatitis. 2. A small amount of ascites. 3. No gallstones or biliary duct stones. No intrahepatic or extrahepatic biliary dilation. 3. Severe hepatic steatosis. 4. Mild duodenal thickening is present, likely secondary to direct spread of inflammation related to acute pancreatitis. 5. Small pleural effusions bilaterally. Dictated by: Ambrose Wheeler M.D. on 04/22/2020 at 12:13 Approved by: Ambrose Wheeler M.D. on 04/22/2020 at 12:37
[2020-04-22] MEDS: SODIUM CHLORIDE 0.9% FLUSH 10 ML IV (08:32)
[2020-04-22] MEDS: ONDANSETRON 4 MG/2 ML INJ IV (08:32)
[2020-04-22] MEDS: FENOFIBRATE 145 MG TABLET PO (08:33)
--- NOTE | 2020-04-22 14:46 | P.PN_ITS ---
Subjective Subjective Date Patient Seen: 04/22/20 Time Patient Seen: 14:47 Interval history: This is a 29-year-old male who was admitted for hypertriglyceridemia pancreatitis. He still continues to have abdominal pain, which migrated slightly into the right upper quadrant. His liver enzymes increased slightly as did his bilirubin today. MRCP was ordered which did not show any evidence biliary pathology, but did show hepatic steatosis and some ascites as well as pleural effusions. Will actually make the patient NPO again and allow his pancreas a little more time to rest, have changed him back to IV pain medications and have restarted IV fluids. Exam Vital Signs (past 8 hours): - 04/22/20 08:00 04/22/20 12:00 04/22/20 13:00 Temperature 98.5 F 97.8 F Pulse Rate 106 H 110 H Respiratory Rate 16 16 Blood Pressure 126/75 109/75 Pulse Oximetry 98 99 99 Oxygen Delivery Method Room Air Oxygen Flow Rate 0 Narrative Exam Narrative: GENERAL APPEARANCE: Well developed, well nourished, in no acute distress. SKIN: Inspection of the skin reveals no rashes, ulcerations or petechiae. HEENT: Normocephalic atraumatic, extraocular muscles are intact, oropharynx is clear and mucous membranes are moist, neck is supple without adenopathy NECK: Supple and symmetric. There was no thyroid enlargement, and no tenderness, or masses were felt. CHEST: Normal AP diameter and normal contour without any kyphoscoliosis. LUNGS: Auscultation of the lungs revealed no wheezes, rhonchi, or rales. CARDIOVASCULAR: There was a regular rate and rhythm without any murmurs, gallops, rubs. Peripheral pulses were 2+ and symmetric. ABDOMEN: Soft but mildly distended abdomen with epigastric but also now RUQ tenderness, no guarding or rebound. MUSCULOSKELETAL: There was no tenderness or effusions noted. Muscle strength and tone were normal. EXTREMITIES: No cyanosis, clubbing or edema. NEUROLOGIC: Alert and oriented x 3. Normal affect. Gait was normal. Strength is +5/5 in the Upper Extremities and Lower Extremities Bilaterally. Sensation to touch was normal. Objective Labs Result Diagrams: 04/22/20 04:40 04/22/20 04:40 Labs: Laboratory Results - last 24 hr 04/21/20 04/22/20 04/22/20 04:10 04:40 04:40 WBC 7.2 RBC 3.80 L Hgb 12.0 L Hct 35.1 L MCV 92.4 MCH 31.6 MCHC 34.1 RDW 13.7 Plt Count 126 L Neut % (Auto) 73.0 Lymph % (Auto) 17.0 L [place] % (Auto) 9.3 Eos % (Auto) 0.6 L Baso % (Auto) 0.1 Neut # (Auto) 5200 Lymph # (Auto) 1200 [place] # (Auto) 700 Eos # (Auto) 0 Baso # (Auto) 0 Sodium 131 L Potassium 3.6 Chloride 98 Carbon Dioxide 30 BUN < 2 L Creatinine 0.84 Estimated GFR > 60.0 BUN/Creatinine Ratio 2.4 L Glucose 141 H Calcium 7.8 L Magnesium 2.1 Total Bilirubin 4.4 H Conjugated Bilirubin 1.4 H Unconjugated Bilirubin 1.5 H AST 169 H ALT 118 H Alkaline Phosphatase 138 H Total Protein 6.3 Albumin 3.0 L Globulin 3.3 Albumin/Globulin Ratio 0.9 L Hep Bs Antibody Reactive Assessment & Plan Assessment & Plan narrative: This is a 29-year-old male with a past medical history of a brain glioma, but no active medical conditions and on no current medications who presented with mid back and abdominal pain for the past 3 days. He is admitted for acute pancreatitis, ultimately likely secondary to hype rtriglyceridemia given a level of 4598 on admission. He was transferred to the ICU for an insulin infusion until his triglycerides dropped below 500. 1. Acute pancreatitis, present on admission, secondary to hypertriglyceridemia -patient with findings consistent with pancreatitis on imaging, elevated lipase to 3503 on admission. Admission triglyceride level is 4598. -patient was started on insulin infusion at 0.1 units/kg/hour and d5 / d10 infusion. He required some boluses of d50 as well due to hypoglycemia. Repeat triglyceride level the following morning showed a triglyceride level of 476. Insulin infusion was stopped and the patient was started on a statin medication and fenofibrate. -patient reports drinking wine 3 times weekly, but not a severe intake. However, his labs are consistent with an alcoholic hepatitis. Biliary ultrasound did not show evidence of gallstones. Will continue to monitor his LFTs and may consider MRCP after initial therapy and response. -patient was started on clear liquids, which he is tolerating without emesis but continues to have seemingly worsening abdominal pain and distension. MRCP still with significant inflammation. Given persistence of pain will make NPO for rest and re-evaluate in the AM. Continue pain medications via IV. 2. Hyponatremia, acute, present on admission -likely secondary to relative dehydration in the setting of decreased p.o. intake and pancreatitis. Unfortunately had to continue the patient on D10 water which slightly diminished his sodium level today. He will continue on clears and we will follow-up his values in the morning. 3. Pre diabetes, present on admission -glucose of 180 on admission, A1c is 6.0 indicative of pre diabetes 4. Acute hepatitis, present on admission -patient with an elevated bilirubin of 3.5, AST of 224, ALT of 135 on admission. This improved HD1 but worsened today, HD2. Will start bowel rest as noted above. MRCP negative for gallstones, but does show severe steatosis. May be MELGAR related. 5. Hypokalemia, acute, not present on admission, resolved. -likely secondary to insulin infusion. He was repleted this more the an insulin infusion was able to be stopped as his triglyceride level improved. Code: full, surrogate decision maker he list as his fiancee. Dispo: Stable for the regular floor, anticipate discharge home in the next 1-2 days once tolerating a diet without significant pain.
[2020-04-22] MEDS: SODIUM CHLORIDE 0.9% 1,000 ML 100 ML IV (16:28)
[2020-04-22] MEDS: MORPHINE 4 MG/ML INJ IV ×2 (18:36→22:36)
[2020-04-23] VITALS (11 sets, daily range): BP systolic 116–140; BP diastolic 80–89; PULSE 104–122; RESP 16–18; TEMP 36.8–37.8; O2SAT 94–100
[2020-04-23] MEDS: MORPHINE 4 MG/ML INJ IV ×3 (02:27→11:23)
[2020-04-23] MEDS: SODIUM CHLORIDE 0.9% 1,000 ML 100 ML IV ×3 (02:27→20:58)
[2020-04-23 05:09] LABS: Add Manual Diff / Slide Review NO; Basophils Absolute Auto 100 /uL (0-100); Basophils Percent Auto 0.7 % (0-2); Eosinophils Absolute Auto 0 /uL (0-450); Eosinophils Percent Auto 0.3 % (2-4); Hematocrit 33.3 % (41-53); Hemoglobin 11.3 g/dL (13.5-17.5); Lymphocytes Absolute Auto 1100 /uL (1100-4500); Mean Corpuscular HGB Conc 33.9 % (30-36); Mean Corpuscular Hemoglobin 31.3 PG (26-34); Mean Corpuscular Volume 92.2 fL (80-100); Monocytes Absolute Auto 800 /uL (0-900); Monocytes Percent Auto 11.3 % (3-14); Neutrophils Absolute Auto 5100 /uL (1500-7000); Neutrophils Percent Auto 71.7 % (50-75); Platelet Count 150 X10^3/uL (150-400); Red Blood Cell Count 3.61 X10^6/uL (4.5-5.9); White Blood Cell Count 7.2 X10^3/uL (4.5-11.0)
[2020-04-23 05:19] LABS: Alanine Aminotransferase 105 IU/L (<50); Albumin Globulin Ratio 0.9 (1.0-2.8); Alkaline Phosphatase 145 U/L (38-126); Aspartate Aminotransferase 119 IU/L (17-59); BUN Creatinine Ratio 2.4 (6-22); Bilirubin Conjugated 0.7 md/dL (0.0-0.3); Bilirubin Total 2.9 mg/dL (0.2-1.3); Bilirubin Unconjugated 0.9 mg/dL (0.0-1.1); Blood Urea Nitrogen < 2 mg/dL (9-20); Calcium 8.2 mg/dL (8.4-10.2); Carbon Dioxide 28 mmol/L (22-32); Chloride 99 mmol/L (98-107); Estimated Glomerular Filt Rate > 60.0 mL/min (>60); Globulin 3.5 g/dL (1.7-4.1); Glucose 120 mg/dL (70-100); HEMOLYSIS < 15 (0-50); Magnesium 2.1 mg/dL (1.6-2.3); Potassium 3.7 mmol/L (3.4-5.1); Sodium 131 mmol/L (137-145); Total Protein 6.5 g/dL (6.3-8.2)
[2020-04-23] MEDS: SODIUM CHLORIDE 0.9% FLUSH 10 ML IV ×2 (08:12→20:56)
[2020-04-23] MEDS: FENOFIBRATE 145 MG TABLET PO (08:12)
[2020-04-23] MEDS: ONDANSETRON 4 MG/2 ML INJ IV ×2 (08:15→23:30)
--- NOTE | 2020-04-23 09:25 | PC.NURSE ---
Dayshift Note: Pt received sitting up in bed, on the phone. Pt reports pain 6/10 across upper abdomen. Requests morphine for pain. Pt also reports nausea, given zofran. Pt unable to take po medication at this time, will administer when pt reports nausea is better. Pt with mild tachycardia, HR up to 118 at times, consistent with prior vital signs and diagnosis. Will continue to monitor, notify MD with changes.
--- NOTE | 2020-04-23 13:29 | P.PN_ITS ---
Subjective Subjective Date Patient Seen: 04/23/20 Time Patient Seen: 13:29 Interval history: This is a 29-year-old male who was admitted for hypertriglyceridemia pancreatitis. He still continues to have abdominal pain and bloating, however seems to be improving later in the day. LFTs improved with NPO status. Will remain NPO today, possibly to start CLD again tomorrow. morphine not effective for the patient today, will try dilaudid IV instead. He denies fevers or chills, but was noted to have a low grade temperature of 100 this afternoon. Exam Vital Signs (past 8 hours): - 04/23/20 06:00 04/23/20 08:00 Temperature 98.4 F Pulse Rate 118 H Respiratory Rate 17 Blood Pressure 131/89 Pulse Oximetry 98 98 Oxygen Delivery Method Room Air Oxygen Flow Rate 0 Narrative Exam Narrative: GENERAL APPEARANCE: Well developed, well nourished, in no acute distress. SKIN: Inspection of the skin reveals no rashes, ulcerations or petechiae. HEENT: Normocephalic atraumatic, extraocular muscles are intact, oropharynx is clear and mucous membranes are moist, neck is supple without adenopathy NECK: Supple and symmetric. There was no thyroid enlargement, and no tenderness, or masses were felt. CHEST: Normal AP diameter and normal contour without any kyphoscoliosis. LUNGS: Auscultation of the lungs revealed no wheezes, rhonchi, or rales. CARDIOVASCULAR: There was a regular rate and rhythm without any murmurs, gallops, rubs. Peripheral pulses were 2+ and symmetric. ABDOMEN: Soft but mildly distended abdomen with epigastric tenderness, no guarding or rebound. MUSCULOSKELETAL: There was no tenderness or effusions noted. Muscle strength and tone were normal. EXTREMITIES: No cyanosis, clubbing or edema. NEUROLOGIC: Alert and oriented x 3. Normal affect. Gait was normal. Strength is +5/5 in the Upper Extremities and Lower Extremities Bilaterally. Sensation to touch was normal. Objective Labs Result Diagrams: 04/23/20 04:40 04/23/20 04:40 Labs: Laboratory Results - last 24 hr 04/23/20 04/23/20 04:40 04:40 WBC 7.2 RBC 3.61 L Hgb 11.3 L Hct 33.3 L MCV 92.2 MCH 31.3 MCHC 33.9 RDW 14.0 Plt Count 150 Neut % (Auto) 71.7 Lymph % (Auto) 16.0 L [place] % (Auto) 11.3 Eos % (Auto) 0.3 L Baso % (Auto) 0.7 Neut # (Auto) 5100 Lymph # (Auto) 1100 [place] # (Auto) 800 Eos # (Auto) 0 Baso # (Auto) 100 Sodium 131 L Potassium 3.7 Chloride 99 Carbon Dioxide 28 BUN < 2 L Creatinine 0.85 Estimated GFR > 60.0 BUN/Creatinine Ratio 2.4 L Glucose 120 H Calcium 8.2 L Magnesium 2.1 Total Bilirubin 2.9 H Conjugated Bilirubin 0.7 H Unconjugated Bilirubin 0.9 AST 119 H ALT 105 H Alkaline Phosphatase 145 H Total Protein 6.5 Albumin 3.0 L Globulin 3.5 Albumin/Globulin Ratio 0.9 L Assessment & Plan Assessment & Plan narrative: This is a 29-year-old male with a past medical history of a brain glioma, but no active medical conditions and on no current medications who presented with mid back and abdominal pain for the past 3 days. He is admitted for acute pancreatitis, ultimately likely secondary to hypertriglyceridemia given a level of 4598 on admission. He was transferred to the ICU for an insulin infusion until his triglycerides dropped below 500. He continues to have abdominal pain, will remain NPO and reassess tomorrow for possible advance to CLD. 1. Acute pancreatitis, present on admission, secondary to hypertriglyceridemia -patient with findings consistent with pancreatitis on imaging, elevated lipase to 3503 on admission. Admission triglyceride level is 4598. -patient was started on insulin infusion at 0.1 units/kg/hour and d5 / d10 i nfusion. He required some boluses of d50 as well due to hypoglycemia. Repeat triglyceride level the following morning showed a triglyceride level of 476. Insulin infusion was stopped and the patient was started on a statin medication and fenofibrate. will repeat triglyceride level in AM to make sure this is still below 500. -patient reports drinking wine 3 times weekly, but not a severe intake. However, his labs are consistent with an alcoholic hepatitis. Biliary ultrasound did not show evidence of gallstones. Will continue to monitor his LFTs and may consider MRCP after initial therapy and response. -patient was started on clear liquids, which he is tolerating without emesis but continues to have seemingly worsening abdominal pain and distension. MRCP still with significant inflammation in his pancreas and significant steatosis. Given persistence of pain today will continue NPO status. 2. Hyponatremia, acute, present on admission -likely secondary to relative dehydration in the setting of decreased p.o. intake and pancreatitis. Unfortunately had to continue the patient on D10 water which slightly diminished his sodium level. Now to 131 and will continue IV fluids with normal saline while NPO. 3. Pre diabetes, present on admission -glucose of 180 on admission, A1c is 6.0 indicative of pre diabetes 4. Acute hepatitis, present on admission -patient with an elevated bilirubin of 3.5, AST of 224, ALT of 135 on admission. This improved HD1 but worsened HD2 but now improved again. Continue bowel rest as noted above. MRCP negative for gallstones, but does show severe steatosis. May be MELGAR related. 5. Hypokalemia, acute, not present on admission, resolved. -likely secondary to insulin infusion. He was repleted this more the an insulin infusion was able to be stopped as his triglyceride level improved. Code: full, surrogate decision maker he list as his fiancee. Dispo: Stable for the regular floor, anticipate discharge home in the next 1-2 days once tolerating a diet without significant pain. COVID-19 COVID-19 status: Negative
[2020-04-23] MEDS: HYDROMORPHONE 2 MG INJ 1 MG IV ×2 (14:24→17:32)
[2020-04-23] MEDS: ATORVASTATIN 20 MG TABLET 80 MG PO (20:54)
[2020-04-23] MEDS: TRAZODONE 50 MG TABLET 25 MG PO (20:55)
[2020-04-23] MEDS: MELATONIN 3 MG TABLET 9 MG PO (20:55)
[2020-04-23] MEDS: HYDROMORPHONE 1 MG INJ IV ×2 (20:56→23:34)
[2020-04-24] VITALS (13 sets, daily range): BP systolic 105–130; BP diastolic 75–82; PULSE 104–124; RESP 16–20; TEMP 37–37.5; O2SAT 94–100
[2020-04-24] MEDS: METOCLOPRAMIDE 10 MG/2 ML INJ 5 MG IV ×2 (00:46→00:50)
[2020-04-24] MEDS: HYDROMORPHONE 1 MG INJ IV ×4 (03:53→15:27)
[2020-04-24] MEDS: SODIUM CHLORIDE 0.9% 1,000 ML 100 ML IV ×3 (04:39→19:30)
[2020-04-24 05:08] LABS: Triglycerides 268 mg/dL (35-150)
[2020-04-24 05:10] LABS: Alanine Aminotransferase 79 IU/L (<50); Albumin 3.1 g/dL (3.5-5.0); Albumin Globulin Ratio 0.9 (1.0-2.8); Alkaline Phosphatase 133 U/L (38-126); Aspartate Aminotransferase 76 IU/L (17-59); BUN Creatinine Ratio 4.7 (6-22); Bilirubin Conjugated 0.5 md/dL (0.0-0.3); Bilirubin Total 2.8 mg/dL (0.2-1.3); Blood Urea Nitrogen 4 mg/dL (9-20); Calcium 8.5 mg/dL (8.4-10.2); Carbon Dioxide 28 mmol/L (22-32); Chloride 98 mmol/L (98-107); Estimated Glomerular Filt Rate > 60.0 mL/min (>60); Globulin 3.5 g/dL (1.7-4.1); Glucose 117 mg/dL (70-100); HEMOLYSIS < 15 (0-50); Potassium 3.7 mmol/L (3.4-5.1); Sodium 131 mmol/L (137-145); Total Protein 6.6 g/dL (6.3-8.2)
[2020-04-24 05:13] LABS: Add Manual Diff / Slide Review NO; Basophils Absolute Auto 0 /uL (0-100); Basophils Percent Auto 0.2 % (0-2); Eosinophils Absolute Auto 0 /uL (0-450); Eosinophils Percent Auto 0.4 % (2-4); Hematocrit 32.5 % (41-53); Hemoglobin 11.1 g/dL (13.5-17.5); Lymphocytes Absolute Auto 1400 /uL (1100-4500); Lymphocytes Percent Auto 14.6 % (25-40); Mean Corpuscular HGB Conc 34.2 % (30-36); Mean Corpuscular Hemoglobin 31.5 PG (26-34); Mean Corpuscular Volume 92.1 fL (80-100); Monocytes Absolute Auto 1600 /uL (0-900); Monocytes Percent Auto 16.5 % (3-14); Neutrophils Absolute Auto 6600 /uL (1500-7000); Neutrophils Percent Auto 68.3 % (50-75); Platelet Count 182 X10^3/uL (150-400); Red Blood Cell Count 3.53 X10^6/uL (4.5-5.9); Red Cell Distribution Width 14.5 % (11.6-14.8); White Blood Cell Count 9.7 X10^3/uL (4.5-11.0)
--- NOTE | 2020-04-24 06:24 | PC.NURSE ---
systems auditor note: Patient with 1 large episode of vomiting at the start of the shift. Originially medicated with Zofran, however, unsuccessful in controlling nausea - therefore Reglan ordered with good effect. VSS throughout shift. Patient up, ambulatory in room. Medicated with PRN Dilaudid throughout shift. See eMar. Call light in reach, patient able to make needs/concerns known. Will continue to monitor.
[2020-04-24] MEDS: METOCLOPRAMIDE 10 MG/2 ML INJ IV (07:33)
[2020-04-24] MEDS: FENOFIBRATE 145 MG TABLET PO (10:15)
--- NOTE | 2020-04-24 13:29 | CM.DPC ---
DCP continued: EMR reviewed: Cm met with patient at the bedside and explained role. Patient is alert and oriented x2. CM?Rn checking in with patient to see if there are any new D/C planning needs. Patient stated that he is doing Ok and still doesn't need any D/C planning assistance. Patient is still planning to D/C back to [place] with significant other Lizet when medically stable. In Am rounds Dr. Sierra stated patient may be ready tomorrow depending on how well he does tolerating diet without pain. Sophia Garcia RN
--- NOTE | 2020-04-24 14:22 | P.PN_ITS ---
Subjective Subjective Date Patient Seen: 04/24/20 Time Patient Seen: 14:22 Interval history: This is a 29-year-old male who was admitted for hypertriglyceridemia pancreatitis. His liver function testing and symptoms have improved with NPO status. Patient is requesting to advance to clears this morning which he is currently tolerating. Will continue on clears for the rest of the day and possibly advance tomorrow. Repeated triglyceride today was 268. Patient denies any fevers, chills. His abdominal pain is better controlled this morning. Exam Vital Signs (past 8 hours): - 04/24/20 08:00 04/24/20 10:00 04/24/20 12:00 Temperature 98.7 F 99.0 F Pulse Rate 108 H 115 H Respiratory Rate 16 16 Blood Pressure 123/82 114/77 Pulse Oximetry 98 100 97 04/24/20 13:55 Temperature Pulse Rate Respiratory Rate Blood Pressure Pulse Oximetry 99 Oxygen Delivery Method Room Air Oxygen Flow Rate 0 Narrative Exam Narrative: GENERAL APPEARANCE: Well developed, well nourished, in no acute distress. SKIN: Inspection of the skin reveals no rashes, ulcerations or petechiae. HEENT: Normocephalic atraumatic, extraocular muscles are intact, oropharynx is clear and mucous membranes are moist, neck is supple without adenopathy NECK: Supple and symmetric. There was no thyroid enlargement, and no tenderness, or masses were felt. CHEST: Normal AP diameter and normal contour without any kyphoscoliosis. LUNGS: Auscultation of the lungs revealed no wheezes, rhonchi, or rales. CARDIOVASCULAR: There was a regular rate and rhythm without any murmurs, gallops, rubs. Peripheral pulses were 2+ and symmetric. ABDOMEN: Soft but mildly distended abdomen with epigastric tenderness but improving, no guarding or rebound. MUSCULOSKELETAL: There was no tenderness or effusions noted. Muscle strength and tone were normal. EXTREMITIES: No cyanosis, clubbing or edema. NEUROLOGIC: Alert and oriented x 3. Normal affect. Gait was normal. Strength is +5/5 in the Upper Extremities and Lower Extremities Bilaterally. Sensation to touch was normal. Objective Labs Result Diagrams: 04/24/20 04:45 04/24/20 04:45 Labs: Laboratory Results - last 24 hr 04/24/20 04/24/20 04/24/20 04:45 04:45 04:45 WBC 9.7 RBC 3.53 L Hgb 11.1 L Hct 32.5 L MCV 92.1 MCH 31.5 MCHC 34.2 RDW 14.5 Plt Count 182 Neut % (Auto) 68.3 Lymph % (Auto) 14.6 L [place] % (Auto) 16.5 H Eos % (Auto) 0.4 L Baso % (Auto) 0.2 Neut # (Auto) 6600 Lymph # (Auto) 1400 [place] # (Auto) 1600 H Eos # (Auto) 0 Baso # (Auto) 0 Sodium 131 L Potassium 3.7 Chloride 98 Carbon Dioxide 28 BUN 4 L Creatinine 0.85 Estimated GFR > 60.0 BUN/Creatinine Ratio 4.7 L Glucose 117 H Calcium 8.5 Total Bilirubin 2.8 H Conjugated Bilirubin 0.5 H Unconjugated Bilirubin 1.0 AST 76 H ALT 79 H Alkaline Phosphatase 133 H Total Protein 6.6 Albumin 3.1 L Globulin 3.5 Albumin/Globulin Ratio 0.9 L Triglycerides 268 H Assessment & Plan Assessment & Plan narrative: This is a 29-year-old male with a past medical history of a brain glioma, but no active medical conditions and on no current medications who presented with mid back and abdominal pain for the past 3 days. He is admitted for acute pancreatitis, ultimately likely secondary to hypertriglyceridemia given a level of 4598 on admission. He was transferred to the ICU for an insulin infusion until his triglycerides dropped below 500. His abdominal pain has improved today after approximately 48 hours of NPO, have advanced to clears today and his pain is better controlled. 1. Acute pancreatitis, present on admission, secondary to hypertriglyceridemia -patient with findings consistent with pancreatitis on imaging, elevated lipase to 3503 on admission. Admission triglyceride level is 4598. -patient was started on insulin infusion at 0.1 units/kg/hour and d5 / d10 infusion. He required some boluses of d50 as well due to hypoglycemia. Repeat triglyceride level the following morning showed a triglyceride level of 476. Insulin infusion was stopped and the patient was started on a statin medication and fenofibrate. Repeated triglyceride level to make sure that there was no recurrence of hypertriglyceridemia, this value was 268 this morning. -patient reports drinking wine 3 times weekly, but not a severe intake. However, his labs are consistent with an alcoholic hepatitis. Biliary ultr asound did not show evidence of gallstones. Will continue to monitor his LFTs. MRCP was performed which showed hepatic steatosis but no evident of biliary pathology. -patient was started on clear liquids, which he was tolerating without emesis but continued to have seemingly worsening abdominal pain and distension. MRCP still with significant inflammation in his pancreas and significant steatosis. Given persistence of pain he was again made NPO for 48 hours. Now improved, he was restarted on CLD today. -continue pain control with opiates, dilaudid has been more effective. Will add oral today in addition to breakthrough IV. -quality control engineering technician consultation for low fat diet. 2. Hyponatremia, acute, present on admission -likely secondary to relative dehydration in the setting of decreased p.o. inta ke and pancreatitis. Unfortunately had to continue the patient on D10 water which slightly diminished his sodium level. Now to 131 and will continue IV fluids with normal saline until tolerating adequate PO intake. 3. Pre diabetes, present on admission -glucose of 180 on admission, A1c is 6.0 indicative of pre diabetes 4. Acute hepatitis, present on admission -patient with an elevated bilirubin of 3.5, AST of 224, ALT of 135 on admission. This improved HD1 but worsened HD2 but now improved again. MRCP negative for gallstones, but does show severe steatosis. May be MELGAR related. Hepatitis s erologies were negative (Hep B immune via vaccine). 5. Hypokalemia, acute, not present on admission, resolved. -likely secondary to insulin infusion. He was repleted this more the an insulin infusion was able to be stopped as his triglyceride level improved. Code: full, surrogate decision maker he list as his fiancee. Dispo: Stable for the regular floor, anticipate discharge home in the next 1-2 days once tolerating a diet and pain is better controlled on oral agents.
--- NOTE | 2020-04-24 14:47 | PC.NURSE ---
Addendum entered by Kassandra Ivy R.N. 04/24/20 15:32: No further c/o nausea. Ambulating in room, comfortably. Pt is hopeful for plan to d/c home now that diet has been restarted. Original Note: AM Shift Pt would like to try and advance diet, clear liquids tolerated ok, Reglan given x1, no further nausea. IV dilaudid for pain control. Indep in room. PIV NS @ 125
[2020-04-24] MEDS: HYDROMORPHONE 2 MG TABLET PO ×2 (18:34→22:30)
[2020-04-24] MEDS: ATORVASTATIN 20 MG TABLET 80 MG PO (21:26)
[2020-04-24] MEDS: TRAZODONE 50 MG TABLET 25 MG PO (21:26)
[2020-04-24] MEDS: MELATONIN 3 MG TABLET 9 MG PO (21:27)
[2020-04-25] VITALS (7 sets, daily range): BP systolic 115–136; BP diastolic 71–83; PULSE 103–114; RESP 16–18; TEMP 36.7–37.2; O2SAT 94–97
[2020-04-25] MEDS: HYDROMORPHONE 1 MG INJ IV (01:51)
[2020-04-25] MEDS: SODIUM CHLORIDE 0.9% 1,000 ML 100 ML IV (01:56)
[2020-04-25] MEDS: HYDROMORPHONE 2 MG TABLET PO (03:20)
[2020-04-25 05:15] LABS: Add Manual Diff / Slide Review NO; Basophils Absolute Auto 0 /uL (0-100); Basophils Percent Auto 0.4 % (0-2); Eosinophils Absolute Auto 0 /uL (0-450); Eosinophils Percent Auto 0.4 % (2-4); Hematocrit 31.1 % (41-53); Hemoglobin 10.7 g/dL (13.5-17.5); Lymphocytes Absolute Auto 1000 /uL (1100-4500); Lymphocytes Percent Auto 9.9 % (25-40); Mean Corpuscular HGB Conc 34.3 % (30-36); Mean Corpuscular Hemoglobin 31.7 PG (26-34); Mean Corpuscular Volume 92.4 fL (80-100); Monocytes Absolute Auto 1200 /uL (0-900); Monocytes Percent Auto 11.6 % (3-14); Neutrophils Absolute Auto 7900 /uL (1500-7000); Neutrophils Percent Auto 77.7 % (50-75); Platelet Count 232 X10^3/uL (150-400); Red Blood Cell Count 3.36 X10^6/uL (4.5-5.9); Red Cell Distribution Width 14.2 % (11.6-14.8); White Blood Cell Count 10.1 X10^3/uL (4.5-11.0)
[2020-04-25 05:24] LABS: Alanine Aminotransferase 65 IU/L (<50); Albumin 3.1 g/dL (3.5-5.0); Albumin Globulin Ratio 0.9 (1.0-2.8); Alkaline Phosphatase 138 U/L (38-126); Aspartate Aminotransferase 78 IU/L (17-59); Bilirubin Unconjugated 0.8 mg/dL (0.0-1.1); Calcium 8.6 mg/dL (8.4-10.2); Carbon Dioxide 31 mmol/L (22-32); Chloride 101 mmol/L (98-107); Estimated Glomerular Filt Rate > 60.0 mL/min (>60); Globulin 3.4 g/dL (1.7-4.1); Glucose 121 mg/dL (70-100); HEMOLYSIS < 15 (0-50); Potassium 3.9 mmol/L (3.4-5.1); Sodium 134 mmol/L (137-145); Total Protein 6.5 g/dL (6.3-8.2)
[2020-04-25 05:28] LABS: BUN Creatinine Ratio 2.3 (6-22); Blood Urea Nitrogen 2 mg/dL (9-20)
--- NOTE | 2020-04-25 06:17 | PC.NURSE ---
insole cementer note: Patient able to sleep well throughout shift. VSS, on RA. Patient medicated with PRN Dilaudid, both PO and IV throughout shift for reported pain. See eMar. Call light in reach. Will continue to monitor.
[2020-04-25] MEDS: SODIUM CHLORIDE 0.9% FLUSH 10 ML IV (10:44)
[2020-04-25] MEDS: FENOFIBRATE 145 MG TABLET PO (10:44)
--- NOTE | 2020-04-25 11:00 | PC.NURSE ---
Pt is up and about independently in room. Anticipating going home today. Pt up to shower, tolerating po. Offers no overt c/o pain presently.
--- NOTE | 2020-04-25 13:12 | CM.DPNOTE ---
DC Note DC order in place, Dr Stewart sending patient home on Lipitor and Tricor, Dr Stewart also encourages close outpatient f/u from a PCP. Patient w/ no insurance and does not qualify for [facility] at this time so reviewed DCP w/patient at bedside this morning. 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 This BERRY PICKER requests nearest pharmacy to patient's home...to inquire about out of pocket expense for new Rx Lipitor and Tricor; Patient suggests calling [facility] near his home in [place]. Patient then explains his dania Hinds has made an appt for him through the [facility] in [place] for f/u w/an Oncologist and patient plans to ask about establishing w/a PCP at that time. Placed call to [facility], approx out of pocket expense for these meds is $230 each (30 day supply), pharmacist suggests checking w/[facility] because a person does not need to be a member to fill prescriptions and out of pocket cost is typically much lower. Placed call to [facility] near patient's home; discussed prescriptions,out of pocket cost approx $17-40 for these meds. Patient very pleased and requests scripts be faxed to [facility] to be filled. Patient appreciative. Faxed Rx to [facility] pharmacy at F# [phone]. Patient plans to spend the night w/a local friend and head home w/dania tomorrow. Rx can be picked up Monday when [facility] pharmacy opens (closed Monday) Patient has [facility] healthcare/financial assistance application and denies further needs from this BERRY PICKER MAKENZIE Mccann
--- NOTE | 2020-04-25 16:14 | PM.DS.1 ---
History of Present Illness History of Present Illness Date Patient Seen: 04/25/20 Chief complaint: abd/back pain, nausea Narrative: This is a 29-year-old male with a past medical history of a brain glioma, but no active medical conditions and on no current medications who presented with mid back and abdominal pain for the past 3 days. Patient reports that 3 days prior to admission he had a back pain that radiated into his belly described as more of a fullness than an overt pain. This sensation actually starts in his back and radiates into his belly. This increased in severity from mild to fairly severe today which is what prompted the patient to seek emergency care. He had nausea and vomiting and was not able to take in much food, but does not think that food makes his pain worse. He has lost quite a bit of weight recently, as his appetite has been much diminished over the past 2 weeks. He has never had an episode of pain like this before. He denies any dysuria, urinary frequency. He denies any hematochezia or melena, and has not had any bloody or dark emesis. He states he has wine up to 3 times a week, confirmed by his fiancee at bedside. In the emergency room, patient was mildly hypertensive and tachycardic, somewhat improved upon arrival to the floor after morphine administration. Initial laboratory findings did not show a leukocytosis, and did show a rather unremarkable CBC. Sodium was mildly low at 129, as was his chloride at 92. Admission glucose was 180, total bilirubin 3.5, AST 224, ALT 135. Total protein was 8.9 with a normal albumin. Added on serum triglycerides after admission which showed a value of 4598, total cholesterol of 599, and an HDL of 63. Lipase on admission was 3503. UA did not show any evidence infection. Alcohol level was negative. COVID-19 testing was negative. Discharge Providers Provider Date of admission: 04/20/20 08:54 Discharge Date: 04/25/20 Consults: 04/20/20 08:51 Consult to TISSUE COORDINATOR - Faculty Head Stat Comment: no PCP or insurance TISSUE COORDINATOR Consult: [facility] Need 04/24/20 11:34 Consult to Dietitian, Adult Urgent Comment: Reason For Exam: Hypertriglyceridemia Discharge provider: Jenny Stewart MD Summary Hospital Course Discharge Diagnosis: 1. Acute pancreatitis 2. Hypertriglyceridemia Hospital Course: Patient was admitted to the hospital for treatment of acute pancreatitis. He was treated with IV fluids, IV insulin, with improvement of his symptoms. He was placed on atorvastatin and Tricor. His initial triglycerides were over 4000. They improved to 268. The patient's diet was advanced. He was able to tolerated clear liquid and then full liquid diet. Patient underwent an MRI scan of the abdomen. This showed no evidence of biliary stones or strictures. Patient was found to have steatosis likely representing MELGAR. He was deemed appropriate for discharge and arrange works were made for him to be discharged home. Patient lives in [place] and will follow-up with the [facility] group for an outpatient new appointment. Status at Discharge Cognitive/behavioral status at discharge: oriented Functional status at discharge: independent ambulation Overall status at discharge: patient is back to baseline Time Spent with Patient Time spent: Less than 30 minutes Exam Vital Signs (past 8 hours): - 04/25/20 10:00 04/25/20 12:00 Temperature 98.5 F Pulse Rate 110 H Respiratory Rate 18 Blood Pressure 118/71 Pulse Oximetry 94 94 Oxygen Delivery Method Room Air Oxygen Flow Rate 0 Narrative Exam Narrative: Pleasant gentleman in no acute distress Lungs: Clear to auscultation Cardiac exam: Regular rate and rhythm normal S1-S2 Abdomen: Soft nontender nondistended Extremities: No edema Objective Labs Result Diagrams: 04/25/20 04:57 04/25/20 04:57 Labs: Laboratory Results - last 24 hr 04/25/20 04/25/20 04:57 04:57 WBC 10.1 RBC 3.36 L Hgb 10.7 L Hct 31.1 L MCV 92.4 MCH 31.7 MCHC 34.3 RDW 14.2 Plt Count 232 Neut % (Auto) 77.7 H Lymph % (Auto) 9.9 L [place] % (Auto) 11.6 Eos % (Auto) 0.4 L Baso % (Auto) 0.4 Neut # (Auto) 7900 H Lymph # (Auto) 1000 L [place] # (Auto) 1200 H Eos # (Auto) 0 Baso # (Auto) 0 Sodium 134 L Potassium 3.9 Chloride 101 Carbon Dioxide 31 BUN 2 L Creatinine 0.86 Estimated GFR > 60.0 BUN/Creatinine Ratio 2.3 L Glucose 121 H Calcium 8.6 Total Bilirubin 2.0 H Conjugated Bilirubin 0.0 Unconjugated Bilirubin 0.8 AST 78 H ALT 65 H Alkaline Phosphatase 138 H Total Protein 6.5 Albumin 3.1 L Globulin 3.4 Albumin/Globulin Ratio 0.9 L Discharge Assessment & Plan Assessment and Plan Assessment: 1. Acute pancreatitis 2. Hypertriglyceridemia Plan of Treatment: Discharge home on atorvastatin and Tricor New patient appointment with [facility] group to establish care Discharge Plan Discharge Plan Patient Disposition: Home Discharge orders & Medications Prescriptions: New atorvastatin [Lipitor] 20 mg Tablet 80 mg PO BEDTIME Qty: 30 RF: 0 fenofibrate nanocrystallized [Tricor] 145 mg Tablet 145 mg PO DAILY Qty: 30 RF: 0 Diet/Activity/Treatments Diet: Diet as Tolerated Skin/Wound/Dressing Care Report to your healthcare provider any signs of infection, such as:: increased pain Visit Report/Discharge Packet Visit Report Forms: Patient Portal/API, Stroke Signs & Symptoms Discharges patient from system. Discharge Date/Time: 04/25/20 13:45
== END 2020-04-25 13:45 | disposition home or self-care (01) | DRG 439 ==
LOC: ED 08:51 → AC 08:55 → ICU 04-21 10:05 → AC 04-21 13:20 → ICU 04-21 13:20 → AC 04-24 14:44 → ICU 04-24 14:44
PROVIDERS: Emergency Medicine; Nurse Practitioner Adult Health; Admitting Provider Internal Medicine; Emergency Provider Emergency Medicine; Referring Provider Emergency Medicine; Visit Provider Internal Medicine
DX: K85.90 Acute pancreatitis without necrosis or infection, unspecified (principal); E87.1 Hypo-osmolality and hyponatremia; B17.9 Acute viral hepatitis, unspecified; E78.1 Pure hyperglyceridemia; E87.6 Hypokalemia; R73.03 Prediabetes; K75.81 Nonalcoholic steatohepatitis (NASH); Z11.59 Encounter for screening for other viral diseases
CPT/HCPCS: 36415; 74177; 74181; 76705; 80048; 80053; 80061; 80076; 80320; 81001; 82962; 83036; 83690; 83735; 84478; 85025; 85610; 86704; 86706; 86803; 87340; 87635; 93005; 96361; 96365; 96375; 99284; J1170; J1650; J2270; J2405; J2543; J2765; J3480